=== PATIENT | female | born 1945 | race Caucasian/White ===

== ENCOUNTER 2024-11-07 21:05 | Inpatient (IN) | payer MEDICARE, SELFPAY ==
[2024-11-07 21:06] VITALS: BMI 30.7
[2024-11-07 21:07] VITALS: BP 177/80; PULSE 86; RESP 20; TEMP 36.6; O2SAT 97; BMI 30.7
--- NOTE | 2024-11-07 21:08 | XR_ITS ---
PROCEDURE INFORMATION: Exam: XR Left Hip Exam date and time: 11/07/2024 9:26 PM Age: 79 years old Clinical indication: Injury or trauma; Fall; Blunt trauma (contusions or hematomas); Left; Hip; Additional info: Hip pain after fall TECHNIQUE: Imaging protocol: Radiologic exam of the left hip. Views: 2 or 3 views hip with pelvis when performed. COMPARISON: CR XR HIP LT 2-3V W/PELVIS 11/07/2024 9:26 PM FINDINGS: Bones/joints: There is an intertrochanteric fracture of the proximal left femur. There is medial displacement of the distal fragment with some impaction present. The femoral head remains seated within the acetabulum. The bony pelvis is intact. A right total hip prosthesis is noted anatomic alignment. Soft tissues: Unremarkable. Other findings: There are multiple dense radiopacities projecting over the right mid abdomen of uncertain significance. These may be external to the patient. IMPRESSION: Left intertrochanteric fracture.
--- NOTE | 2024-11-07 21:08 | XR_ITS ---
PROCEDURE INFORMATION: Exam: XR Left Femur Exam date and time: 11/07/2024 9:26 PM Age: 79 years old Clinical indication: Injury or trauma; Fall; Blunt trauma; Hip; Left; Additional info: Pain after fall TECHNIQUE: Imaging protocol: Radiologic exam of the left femur. Views: 2 views. COMPARISON: CR XR HIP LT 2-3V W/PELVIS 11/07/2024 9:26 PM FINDINGS: Bones/joints: There is an intertrochanteric fracture. The distal femur is intact. There is severe degenerative changes of the knee. Soft tissues: Unremarkable. IMPRESSION: Intertrochanteric fracture.
--- NOTE | 2024-11-07 21:08 | HMH.EDGENADL ---
Discharge Plan Disposition Patient Disposition: Admitted Condition: Fair Clinical Impressions Clinical Impression: Femur fracture, left Discharge ED Provider: Rm Sheriff Adult HPI General Chief complaint: Fall Stated complaint: fall Time Seen by Provider: 11/07/24 21:07 History of Present Illness HPI narrative: Patient presents after nonsyncopal fall from standing onto her bottom which occurred shortly prior to arrival. She describes isolated pain in her left hip with no associated numbness tingling. Pain is worsened with movement. No head injury. No pain elsewhere. No blood thinner usage. She was in her normal state of health prior to onset of symptoms. Please note that above description of symptoms, in this electronic medical record under categorization of recalled from ER triage doctor by RN are reflective of an initial nursing assessment, however, is not reflective of my full history and physical exam that was personally taken and clarified. Consequentially, this preceding description of symptoms, which may include the patient's categorized chief complaint in the EMR, do not reflect my personal clinical impression, and the ultimate description of history of present illness and patient stated complaints should be deferred to this section of the note. Unless stated otherwise or congruent with this section of the note, additional signs, symptoms, or incongruence should be interpreted as inaccurate with my clinical impression. Related Data Home Medications ?Medication ?Instructions ?Recorded ?Confirmed amlodipine 5 mg tablet 5 mg PO DAILY 11/07/24 11/07/24 vit C 250 mg-vit E 200 unit-zinc 2 cap PO DAILY 11/07/24 11/07/24 ox 12.5 [id number]-[id number] capsule Previous Rx's ?Medication ?Instructions ?Recorded alendronate 70 mg tablet 70 mg PO WEEKLY 14 days #2 tabs 11/09/24 aspirin 325 mg tablet 325 mg PO DAILY 15 days #15 tabs 11/09/24 glipizide 10 mg tablet 10 mg PO DAILY 14 days #14 tabs 11/09/24 hydrocodone 5 mg-acetaminophen 325 1 tab PO Q6HP PRN Moderate To 11/09/24 mg tablet Severe Pain (4-10) 3 days #12 tabs levothyroxine 50 mcg tablet 50 mcg PO DAILY 15 days #15 tabs 11/09/24 pantoprazole 40 mg tablet,delayed 40 mg PO HS 15 days #15 tabs 11/09/24 release Allergies Allergy/AdvReac Type Severity Reaction Status Date / Time No Known Allergies Allergy Verified 11/08/24 01:08 [facility] Disclaimer: The information contained in this section may have been updated after the patient was seen, as this information can be updated by other users. Medical History (Updated 11/08/24 @ 10:41 by Haris Riddle DO) Macular degeneration of both eyes Foot fracture, left Ulnar nerve abnormality Osteopenia HTN (hypertension) Diabetes Hypothyroid Surgical History (Updated 11/08/24 @ 00:08 by Dee Londono RN) H/O: hysterectomy History of right hip hemiarthroplasty Social History (Updated 11/08/24 @ 09:01 by Lee Contreras CRNA) Smoking Status: Never smoker alcohol intake: never substance use type: denies use current occupational status: retired Travel in the last 8 weeks?: Inside the [place] ROS Obtained: Yes other As per HPI Physical Exam General General appearance: alert and in no apparent distress Head Head exam: atraumatic and normocephalic Eye Eye exam: Present normal appearance Neck Neck exam: Present normal inspection Chest Chest inspection: Present normal inspection and symmetric chest wall rise Respiratory Respiratory exam: Present normal lung sounds bilaterally; Absent respiratory distress Cardiovascular Cardiovascular exam: Present regular rate and normal rhythm Abdominal Exam Abdominal exam: Present soft Neurological Exam Neurological exam: Present alert and oriented X3 Psychiatric Psychiatric exam: Present normal affect and normal mood Skin Skin exam: Present warm and dry Medical Decision Making Medical Records Medical records reviewed: Yes I reviewed the patient's medical records. Screening: Per USPSTF and CDC recommendations, given the prevalence of disease in our region, it is our hospital?s policy to screen for HIV and viral Hepatitis for all patients aged 18 and over and those with ongoing risk factors. Poli Inquiry Pt receiving controlled substance: No Vital Signs: 11/07/24 21:07 11/07/24 21:21 11/07/24 22:37 Temperature 97.9 F Temperature Source Oral Pulse Rate 88 Pulse Rate [Left] 86 Respiratory Rate 20 16 Blood Pressure 149/66 H Blood Pressure [Right Arm] 177/80 H Blood Pressure Mean [Right Arm] 112 02 Sat by Pulse Oximetry 97 92 L Oxygen Delivery Method Nasal Cannula Room Air Oxygen Flow Rate (LPM) 2 11/07/24 22:51 Temperature 98.3 F Temperature Source Temporal Artery Scan Pulse Rate 82 Pulse Rate [Left] Respiratory Rate 20 Blood Pressure 147/65 H Blood Pressure [Right Arm] Blood Pressure Mean [Right Arm] 02 Sat by Pulse Oximetry Oxygen Delivery Method Nasal Cannula Oxygen Flow Rate (LPM) 2 Lab Data Lab Results 11/07/24 19:50: Hemoglobin A1c 6.2 H, TSH 0.97 11/07/24 21:13: WBC 9.0, RBC 4.56, Hgb 13.1, Hct 38.7, MCV 84.9, MCH 28.7, MCHC 33.9, RDW 13.8, Plt Count 198, MPV 9.3, Neut % (Auto) 60.4, Lymph % (Auto) 30.2, Pike % (Auto) 7.8, Eos % (Auto) 0.9, Baso % (Auto) 0.4, Neut # (Auto) 5.4, Lymph # (Auto) 2.7, Pike # (Auto) 0.7, Eos # (Auto) 0.1, Baso # (Auto) 0.0, PT 10.6, INR 0.94, Sodium 138, Potassium 3.5, Chloride 108 H, Carbon Dioxide 18 L, Anion Gap 15.5 H, BUN 13, Creatinine 0.70, Estimated Creat Clear 61, Estimated GFR 81, Est GFR ( Amer) 97, Glucose 172 H, Calcium 8.5, Total Bilirubin 0.7, AST 51 H, ALT 17, Alkaline Phosphatase 85, Total Protein 7.2, Albumin 3.7, Globulin 3.5 H, Albumin/Globulin Ratio 1.1, HCV Ab YUKO w/Rflx PCR Qn Negative, HIV Ag/Ab Combo Qual Negative 11/09/24 05:33 11/09/24 05:33 Orders (Tests/Meds): ED MEDICATIONS Discontinued Medications Generic Name Dose Route Start Last Admin Trade Name Freq PRN Reason Stop Dose Admin Hydrocodone Bitart/Acetaminophen 1 tab 11/07/24 23:50 11/08/24 09:16 Hydrocodone/Apap 5/325 Mg Tablet PO 12/07/24 23:49 1 tab Q6HP PRN Administration Moderate to Severe Pain (4-10) Hydrocodone Bitart/Acetaminophen 2 tab 11/08/24 13:47 11/09/24 14:15 Hydrocodone/Apap 5/325 Mg Tablet PO 12/08/24 13:46 2 tab Q4HP PRN Administration Moderate to Severe Pain (4-10) Amlodipine Besylate 5 mg 11/09/24 10:15 11/09/24 10:37 Amlodipine 5mg Tablet PO 12/09/24 10:14 5 mg DAILY MOON Administration Aspirin 81 mg 11/08/24 21:00 11/09/24 08:00 Aspirin 81mg Chewable Tablet PO 12/08/24 20:59 81 mg BID MOON Administration Furosemide 40 mg 11/09/24 09:34 11/09/24 10:03 Furosemide 40mg/4ml Vial IV 11/09/24 09:35 40 mg ONCE ONE Administration Hydromorphone HCl 1 mg 11/07/24 21:08 11/07/24 21:22 Hydromorphone 4 Mg/Ml Syringe IV 11/07/24 21:09 1 mg ONCE ONE Administration Hydromorphone HCl 0.5 mg 11/07/24 22:26 11/07/24 22:37 Hydromorphone 2mg/Ml Syringe IV 11/07/24 22:27 0.5 mg ONCE ONE Administration Lactated Ringer's 1,000 mls @ 75 mls/hr 11/07/24 23:45 11/08/24 00:31 Lactated Ringer's 1000 Ml Bag IV 11/08/24 09:44 Not Given .[id number] MOON Magnesium Sulfate 2 gm in 50 mls @ 50 mls/hr 11/08/24 09:00 11/08/24 14:00 Magnesium Sulfate 2gm/50ml Premix IV 11/08/24 10:59 50 mls/hr Q1H MOON Administration Cefazolin Sodium 1 gm/ Sodium 50 mls @ 100 mls/hr 11/08/24 17:00 11/08/24 22:25 Chloride IV 11/08/24 23:29 100 mls/hr Q6H MOON Administration Insulin Human Lispro 2 - 12 unit 11/08/24 06:00 11/09/24 10:59 Humalog 100 Units/Ml 10ml Vial (Ssi) SUBCUT 12/08/24 05:59 4 unit ACHS MOON Administration Protocol Ketorolac Tromethamine 30 mg 11/07/24 22:29 11/08/24 21:32 Ketorolac 30mg/Ml Vial IV 11/12/24 22:28 30 mg Q6HP PRN Administration Moderate Pain (4-6) Levothyroxine Sodium 50 mcg 11/08/24 09:00 11/09/24 06:08 Levothyroxine 50mcg (0.05mg) Tab PO 12/08/24 08:59 50 mcg DAILYDM MOON Administration Meperidine HCl 25 mg 11/08/24 13:34 Meperidine 25mg/Ml 1ml Syringe IV 11/08/24 15:34 Q5MINP PRN Shivering Morphine Sulfate 2 mg 11/08/24 13:34 Morphine 2mg/Ml Syringe IV 11/08/24 15:34 Q5MINP PRN Moderate Pain (4-6) Ondansetron HCl 4 mg 11/07/24 23:04 11/07/24 23:10 Ondansetron 4mg/2ml Vial IV 12/07/24 23:03 4 mg Q8HP PRN Administration Nausea Ondansetron HCl 4 mg 11/08/24 13:34 Ondansetron 4mg/2ml Vial IV 11/08/24 15:34 Q6HP PRN Nausea Pantoprazole Sodium 40 mg 11/09/24 21:00 Pantoprazole 40mg Tablet PO 12/09/24 20:59 HS MOON Potassium Chloride 40 meq 11/08/24 09:00 11/08/24 14:01 Potassium Chloride 20meq Tab PO 11/08/24 13:01 40 meq Q4H MOON Administration Promethazine HCl 6.25 mg 11/08/24 13:34 Promethazine Hcl 25mg/Ml 1ml Vial IV 11/08/24 15:34 [id number] PRN Nausea And Vomiting Sodium Chloride 10 ml 11/07/24 23:53 Sodium Chloride 0.9% 10ml Flush Syringe IV 12/07/24 23:52 NEEDED PRN Maintain IV Site Sodium Chloride 25 ml 11/08/24 13:34 Sodium Chloride 0.9% 25ml Bag IV 11/08/24 15:34 NEEDED PRN for Use with IV Promethazine Tizanidine HCl 4 mg 11/07/24 23:51 11/08/24 00:15 Tizanidine 4mg Tablet PO 12/08/24 08:59 4 mg TID PRN Administration Muscle Spasm Tizanidine HCl 4 mg 11/08/24 06:05 Tizanidine 4mg Tablet PO 12/07/24 23:50 TIDP PRN Muscle Spasm ORDERS Category Date Time Status Ortho Consult [Consult to Orthopedic Surgery] [CONS] Cons 11/07/24 22:31 Ordered Stat Elbow XR right 2 views [XR elbow RT 2V] Stat Exams 11/07/24 22:15 Completed XR femur LT 2V Stat Exams 11/07/24 21:08 Completed XR hip LT 2-3V w/pelvis Stat Exams 11/07/24 21:08 Completed XR hip RT 2-3V w/pelvis Stat Exams 11/07/24 22:20 Completed XR humerus RT Stat Exams 11/07/24 22:15 Completed XR shoulder RT min 2V Stat Exams 11/07/24 22:15 Completed CBC w/Auto Diff [Complete Blood Count Auto Diff] Stat Lab 11/07/24 21:13 Completed CMP [Comprehensive Metabolic Panel] Stat Lab 11/07/24 21:13 Completed Complete Blood Count Auto Diff AMLAB Lab 11/08/24 05:33 Completed Comprehensive Metabolic Panel AMLAB Lab 11/08/24 05:33 Completed HIV Combo Stat Lab 11/07/24 21:13 Completed Hemoglobin A1C Stat Lab 11/07/24 19:50 Completed Hepatitis C Ab Qual. W/ RFX Stat Lab 11/07/24 21:13 Completed Magnesium AMLAB Lab 11/08/24 05:33 Completed PT INR [Prothrombin Time INR] Stat Lab 11/07/24 21:13 Completed TSH [Thyroid Stimulating Hormone] Stat Lab 11/07/24 19:50 Completed Medical Decision Narrative: Patient with history and exam per above presenting for evaluation of left hip pain after fall Diagnoses considered include fracture, no clinical evidence to suggest intracranial injury, vascular injury, nerve injury ED workup and treatment included: ED MEDICATIONS Discontinued Medications Generic Name Dose Route Start Last Admin Trade Name Freq PRN Reason Stop Dose Admin Hydrocodone Bitart/Acetaminophen 1 tab 11/07/24 23:50 11/08/24 09:16 Hydrocodone/Apap 5/325 Mg Tablet PO 12/07/24 23:49 1 tab Q6HP PRN Administration Moderate to Severe Pain (4-10) Hydrocodone Bitart/Acetaminophen 2 tab 11/08/24 13:47 11/09/24 14:15 Hydrocodone/Apap 5/325 Mg Tablet PO 12/08/24 13:46 2 tab Q4HP PRN Administration Moderate to Severe Pain (4-10) Amlodipine Besylate 5 mg 11/09/24 10:15 11/09/24 10:37 Amlodipine 5mg Tablet PO 12/09/24 10:14 5 mg DAILY MOON Administration Aspirin 81 mg 11/08/24 21:00 11/09/24 08:00 Aspirin 81mg Chewable Tablet PO 12/08/24 20:59 81 mg BID MOON Administration Furosemide 40 mg 11/09/24 09:34 11/09/24 10:03 Furosemide 40mg/4ml Vial IV 11/09/24 09:35 40 mg ONCE ONE Administration Hydromorphone HCl 1 mg 11/07/24 21:08 11/07/24 21:22 Hydromorphone 4 Mg/Ml Syringe IV 11/07/24 21:09 1 mg ONCE ONE Administration Hydromorphone HCl 0.5 mg 11/07/24 22:26 11/07/24 22:37 Hydromorphone 2mg/Ml Syringe IV 11/07/24 22:27 0.5 mg ONCE ONE Administration Lactated Ringer's 1,000 mls @ 75 mls/hr 11/07/24 23:45 11/08/24 00:31 Lactated Ringer's 1000 Ml Bag IV 11/08/24 09:44 Not Given .[id number] MOON Magnesium Sulfate 2 gm in 50 mls @ 50 mls/hr 11/08/24 09:00 11/08/24 14:00 Magnesium Sulfate 2gm/50ml Premix IV 11/08/24 10:59 50 mls/hr Q1H MOON Administration Cefazolin Sodium 1 gm/ Sodium 50 mls @ 100 mls/hr 11/08/24 17:00 11/08/24 22:25 Chloride IV 11/08/24 23:29 100 mls/hr Q6H MOON Administration Insulin Human Lispro 2 - 12 unit 11/08/24 06:00 11/09/24 10:59 Humalog 100 Units/Ml 10ml Vial (Ssi) SUBCUT 12/08/24 05:59 4 unit ACHS MOON Administration Protocol Ketorolac Tromethamine 30 mg 11/07/24 22:29 11/08/24 21:32 Ketorolac 30mg/Ml Vial IV 11/12/24 22:28 30 mg Q6HP PRN Administration Moderate Pain (4-6) Levothyroxine Sodium 50 mcg 11/08/24 09:00 11/09/24 06:08 Levothyroxine 50mcg (0.05mg) Tab PO 12/08/24 08:59 50 mcg DAILYDM MOON Administration Meperidine HCl 25 mg 11/08/24 13:34 Meperidine 25mg/Ml 1ml Syringe IV 11/08/24 15:34 Q5MINP PRN Shivering Morphine Sulfate 2 mg 11/08/24 13:34 Morphine 2mg/Ml Syringe IV 11/08/24 15:34 Q5MINP PRN Moderate Pain (4-6) Ondansetron HCl 4 mg 11/07/24 23:04 11/07/24 23:10 Ondansetron 4mg/2ml Vial IV 12/07/24 23:03 4 mg Q8HP PRN Administration Nausea Ondansetron HCl 4 mg 11/08/24 13:34 Ondansetron 4mg/2ml Vial IV 11/08/24 15:34 Q6HP PRN Nausea Pantoprazole Sodium 40 mg 11/09/24 21:00 Pantoprazole 40mg Tablet PO 12/09/24 20:59 HS MOON Potassium Chloride 40 meq 11/08/24 09:00 11/08/24 14:01 Potassium Chloride 20meq Tab PO 11/08/24 13:01 40 meq Q4H MOON Administration Promethazine HCl 6.25 mg 11/08/24 13:34 Promethazine Hcl 25mg/Ml 1ml Vial IV 11/08/24 15:34 [id number] PRN Nausea And Vomiting Sodium Chloride 10 ml 11/07/24 23:53 Sodium Chloride 0.9% 10ml Flush Syringe IV 12/07/24 23:52 NEEDED PRN Maintain IV Site Sodium Chloride 25 ml 11/08/24 13:34 Sodium Chloride 0.9% 25ml Bag IV 11/08/24 15:34 NEEDED PRN for Use with IV Promethazine Tizanidine HCl 4 mg 11/07/24 23:51 11/08/24 00:15 Tizanidine 4mg Tablet PO 12/08/24 08:59 4 mg TID PRN Administration Muscle Spasm Tizanidine HCl 4 mg 11/08/24 06:05 Tizanidine 4mg Tablet PO 12/07/24 23:50 TIDP PRN Muscle Spasm ORDERS Category Date Time Status Ortho Consult [Consult to Orthopedic Surgery] [CONS] Cons 11/07/24 22:31 Ordered Stat Elbow XR right 2 views [XR elbow RT 2V] Stat Exams 11/07/24 22:15 Completed XR femur LT 2V Stat Exams 11/07/24 21:08 Completed XR hip LT 2-3V w/pelvis Stat Exams 11/07/24 21:08 Completed XR hip RT 2-3V w/pelvis Stat Exams 11/07/24 22:20 Completed XR humerus RT Stat Exams 11/07/24 22:15 Completed XR shoulder RT min 2V Stat Exams 11/07/24 22:15 Completed CBC w/Auto Diff [Complete Blood Count Auto Diff] Stat Lab 11/07/24 21:13 Completed CMP [Comprehensive Metabolic Panel] Stat Lab 11/07/24 21:13 Completed Complete Blood Count Auto Diff AMLAB Lab 11/08/24 05:33 Completed Comprehensive Metabolic Panel AMLAB Lab 11/08/24 05:33 Completed HIV Combo Stat Lab 11/07/24 21:13 Completed Hemoglobin A1C Stat Lab 11/07/24 19:50 Completed Hepatitis C Ab Qual. W/ RFX Stat Lab 11/07/24 21:13 Completed Magnesium AMLAB Lab 11/08/24 05:33 Completed PT INR [Prothrombin Time INR] Stat Lab 11/07/24 21:13 Completed TSH [Thyroid Stimulating Hormone] Stat Lab 11/07/24 19:50 Completed Labs were independently interpreted by me, significant for no acute findings Imaging was independently visualized and interpreted by me, significant for left intertrochanteric fracture. Please refer to radiology report for full details. Patient will be admitted to hospital medicine service after orthopedic surgery consultation for further management. Critical Care Critical Care Time Critical Care Time: No
[2024-11-07 21:20] LABS: Basophils % 0.4 % (0.1-2.0); Eosinophils # 0.1 Kmm3 (0.0-0.4); Eosinophils % 0.9 % (0.1-12.0); Hematocrit 38.7 % (37.0-47.0); Hemoglobin 13.1 g/dL (12.2-16.2); Lymphocytes # 2.7 K/mm3 (0.7-4.5); Lymphocytes % 30.2 % (10-50); Mean Corpuscular HGB Conc 33.9 g/dL (31.8-35.4); Mean Corpuscular Hemoglobin 28.7 pg (27.0-31.2); Mean Corpuscular Volume 84.9 fl (81-99); Mean Platelet Volume 9.3 fl (7.4-10.4); Monocytes # 0.7 K/mm3 (0.1-1.0); Monocytes % 7.8 % (1.7-9.3); Neutrophils # 5.4 K/mm3 (1.8-7.8); Neutrophils % 60.4 % (37.0-80.0); Nucleated Red Blood Cells # 0 10^3/uL; Nucleated Red Blood Cells % 0 %; Platelet Count 198 K/mm3 (142-424); Red Blood Count 4.56 M/mm3 (4.20-5.40); Red Cell Distribution Width 13.8 % (11.5-17.5); Red Cell Distribution Width-SD 42.5 fL
[2024-11-07 21:21] VITALS: BP 149/66; PULSE 88; RESP 16; O2SAT 92
[2024-11-07 21:29] LABS: INR 0.94 (0.9-1.1); Prothrombin Time 10.6 seconds (10.1-12.5)
[2024-11-07 21:33] LABS: Albumin Level 3.7 g/dl (3.5-5.0); Chloride 108 mmol/L (98-107); Potassium 3.5 mmoL/L (3.5-5.1); Sodium 138 mmol/L (136-145)
[2024-11-07 21:35] LABS: Blood Urea Nitrogen 13 mg/dl (7-17); Creatinine Clearance Estimated 61 mL/min (50-200); Estimated Glomerular Filt Rate 81 ml/min (>60); GFR (African American) 97 ML/MIN (>60)
[2024-11-07 21:36] LABS: Alanine Aminotransferase 17 U/L (12-78); Albumin/Globulin Ratio 1.1 (1.1-1.8); Alkaline Phosphatase 85 U/L (38-126); Anion Gap 15.5 mEq/L (5-15); Aspartate Amino Transferase 51 U/L (14-36); Bilirubin,Total 0.7 mg/dl (0.2-1.3); Calcium 8.5 mg/dl (8.4-10.2); Carbon Dioxide 18 mmol/L (22.0-30.0); Globulin 3.5 g/dL (1.3-3.2); Glucose 172 mg/dl (74-100); Total Protein,Serum 7.2 g/dl (6.3-8.2)
--- NOTE | 2024-11-07 22:15 | XR_ITS ---
PROCEDURE INFORMATION: Exam: XR Right Humerus Exam date and time: 11/07/2024 10:34 PM Age: 79 years old Clinical indication: Injury or trauma; Fall; Blunt trauma (contusions or hematomas); Arm, upper; Right; Additional info: Pain after fall TECHNIQUE: Imaging protocol: Radiologic exam of the right humerus. Views: 2 or more views. COMPARISON: CR XR HUMERUS RT 11/07/2024 10:34 PM FINDINGS: Bones/joints: The humerus is intact. The shoulder and elbow are normally aligned. Soft tissues: Normal. IMPRESSION: No acute findings.
--- NOTE | 2024-11-07 22:15 | XR_ITS ---
PROCEDURE INFORMATION: Exam: XR Right Elbow Exam date and time: 11/07/2024 10:34 PM Age: 79 years old Clinical indication: Injury or trauma; Fall; Blunt trauma (contusions or hematomas); Elbow; Right; Additional info: Pain after fall TECHNIQUE: Imaging protocol: Radiologic exam of the right elbow. Views: 1 or 2 views. COMPARISON: CR XR HUMERUS RT 11/07/2024 10:34 PM FINDINGS: Bones/joints: The elbow is normally aligned. There are degenerative changes present. No acute fracture or joint effusion. Prominent enthesophyte at the triceps insertion. Soft tissues: Posterior soft tissue swelling. IMPRESSION: Posterior soft tissue swelling. No acute fracture.
--- NOTE | 2024-11-07 22:15 | XR_ITS ---
PROCEDURE INFORMATION: Exam: XR Right Shoulder Exam date and time: 11/07/2024 10:34 PM Age: 79 years old Clinical indication: Injury or trauma; Fall; Blunt trauma (contusions or hematomas); Arm, upper; Right; Additional info: Pain after fall TECHNIQUE: Imaging protocol: Radiologic exam of the right shoulder. Views: 2 or more views. COMPARISON: CR XR SHOULDER RT MIN 2V 11/07/2024 10:34 PM FINDINGS: Bones/joints: The glenohumeral AC joints are normally aligned. There is moderate degenerative change of the glenohumeral joint. No acute fracture is evident. Soft tissues: Normal. IMPRESSION: No acute findings.
[2024-11-07 22:19] LABS: HIV Combo NEGATIVE (Negative)
--- NOTE | 2024-11-07 22:20 | XR_ITS ---
PROCEDURE INFORMATION: Exam: XR Right Hip Exam date and time: 11/07/2024 10:34 PM Age: 79 years old Clinical indication: Injury or trauma; Fall; Blunt trauma (contusions or hematomas); Bilateral; Hip; Additional info: Pain after fall TECHNIQUE: Imaging protocol: Radiologic exam of the right hip. Views: 2 or 3 views hip with pelvis when performed. COMPARISON: No relevant prior studies available. FINDINGS: Bones/joints: A right total hip prosthesis is noted anatomic alignment. The bone prosthetic interface is normal. No acute fracture is evident. Soft tissues: Unremarkable. IMPRESSION: Intact right hip prosthesis. No acute fracture.
[2024-11-07 22:27] LABS: Hepatitis C Ab Qual. W/ RFX NEGATIVE (Negative)
--- NOTE | 2024-11-07 22:33 | EXP.HP ---
History of Present Illness *Admission Date: 11/07/24 *Reason for visit:: fall with left hip pain *History of present illness: Ms. Fatima is an 79-year-old female with history of hypertension, diabetes, hypothyroid. She is visiting [place] from [place]. Went to the parking counter earlier today. On her way back into her air BNB this evening she fell going up the stairs. She fell back on her bottom. When she tried to get up, she had acute onset of left hip pain. Denies loss of consciousness. Did not hit her head. Also hit her right elbow. Workup in the ER showed essentially normal labs. Imaging of right arm with no fracture. Left hip has intertrochanteric fracture. Medicine consulted for admission and further management. Plan for orthopedics to evaluate in the morning Patient on 1 L oxygen for comfort on arrival to the floor. Denies chest pain or shortness of breath. Denies nausea or vomiting. Alert and oriented x 4. Family at bedside. Patient previously had right hip replaced several years ago. Denies any significant allergies. [facility] Disclaimer: The information contained in this section may have been updated after the patient was seen, as this information can be updated by other users. Medical History (Updated 11/08/24 @ 00:08 by Dee Londono RN) Macular degeneration of both eyes Foot fracture, left Ulnar nerve abnormality Osteopenia HTN (hypertension) Diabetes Hypothyroid Surgical History (Updated 11/08/24 @ 00:08 by Dee Londono RN) H/O: hysterectomy History of right hip hemiarthroplasty Social History Smoking Status: Never smoker alcohol intake: never current occupational status: retired Travel in the last 8 weeks: Inside the [place] Review of Systems Review of Systems Review of systems (narrative): 14 point review of systems performed, pertinent positives and negatives as per HPI Meds Home Medications and Allergies Home Medications ?Medication ?Instructions ?Recorded ?Confirmed ?Type alendronate 70 mg tablet 70 mg PO WEEKLY 11/07/24 11/07/24 History amlodipine 5 mg tablet 5 mg PO DAILY 11/07/24 11/07/24 History aspirin 325 mg tablet 325 mg PO DAILY 11/07/24 11/07/24 History glipizide 10 mg tablet 10 mg PO DAILY 11/07/24 11/07/24 History hydrocodone 5 mg-acetaminophen 325 1 tab PO Q6H 11/07/24 11/07/24 History mg tablet levothyroxine 50 mcg tablet 50 mcg PO DAILY 11/07/24 11/07/24 History vit C 250 mg-vit E 200 unit-zinc 2 cap PO DAILY 11/07/24 11/07/24 History ox 12.5 ol-tarpwx-deixzs-zeax capsule New Prescriptions to Start Prescriptions: Exam Data for Last 24 hours Vital signs and Labs for Last 24 Hours: Temp Pulse Resp BP Pulse Ox O2 Del Method O2 Flow Rate 97.9 F 88 16 149/66 H 92 L Nasal Cannula 2 11/07/24 21:07 11/07/24 21:21 11/07/24 21:21 11/07/24 21:21 11/07/24 21:21 11/07/24 21:07 11/07/24 21:07 Laboratory Results - last 24 hr 11/07/24 21:13: WBC 9.0, RBC 4.56, Hgb 13.1, Hct 38.7, MCV 84.9, MCH 28.7, MCHC 33.9, RDW 13.8, Plt Count 198, MPV 9.3, Neut % (Auto) 60.4, Lymph % (Auto) 30.2, [place] % (Auto) 7.8, Eos % (Auto) 0.9, Baso % (Auto) 0.4, Neut # (Auto) 5.4, Lymph # (Auto) 2.7, [place] # (Auto) 0.7, Eos # (Auto) 0.1, Baso # (Auto) 0.0, PT 10.6, INR 0.94, Sodium 138, Potassium 3.5, Chloride 108 H, Carbon Dioxide 18 L, Anion Gap 15.5 H, BUN 13, Creatinine 0.70, Estimated Creat Clear 61, Estimated GFR 81, Est GFR ( Amer) 97, Glucose 172 H, Calcium 8.5, Total Bilirubin 0.7, AST 51 H, ALT 17, Alkaline Phosphatase 85, Total Protein 7.2, Albumin 3.7, Globulin 3.5 H, Albumin/Globulin Ratio 1.1, HCV Ab YUKO w/Rflx PCR Qn Negative, HIV Ag/Ab Combo Qual Negative I & O for Last 24 hours: Intake & Output 11/04/24 11/05/24 11/06/24 11/07/24 23:59 23:59 23:59 23:59 Weight 86.183 kg Constitutional Constitutional: no acute distress, obese and cooperative *Routine HEENT Exam Head: Present normocephalic Eye: Present EOMI and PERRL ENT: Present mucous membranes moist *Routine Neck Exam Neck: Present supple; Absent lymphadenopathy *Routine Respiratory Exam Respiratory: Present CTA bilaterally *Routine Cardiovascular Exam Cardiovascular: Present RRR *Routine Abdominal Exam Abdominal: Present soft and normoactive bowel sounds; Absent tenderness *Routine Rectal Exam Rectal:: deferred *Routine Genitalia Exam Genitalia:: deferred *Routine Extremities Exam Extremities: Absent cyanosis, clubbing or edema Comments: Left leg externally rotated and shorter than right leg, tender to palpation over left hip *Routine Skin Exam Skin: Present intact and warm; Absent rash *Routine Neurological Exam Neurological: Present alert, oriented X3 and moving all extremities; Absent altered mental status Assessment and Plan *Assessment and plan (1) Left hip pain: Status: Acute Category: Medical Code(s): M25.552 - Pain in left hip (2) Fracture, intertrochanteric, left femur: Status: Acute Qualifiers: Encounter type: initial encounter Fracture alignment: displaced Fracture type: closed Qualified Code(s): S72.142A - Displaced intertrochanteric fracture of left femur, initial encounter for closed fracture Category: Medical Code(s): S72.142A - Displaced intertrochanteric fracture of left femur, initial encounter for closed fracture (3) Hypothyroid: Status: Chronic Qualifiers: Hypothyroidism type: acquired Qualified Code(s): E03.9 - Hypothyroidism, unspecified Category: Medical Code(s): E03.9 - Hypothyroidism, unspecified (4) Diabetes: Status: Chronic Qualifiers: Diabetes mellitus complication status: without complication 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 insulin use: without alf use Diabetes mellitus type: type 2 Qualified Code(s): E11.9 - Type 2 diabetes mellitus without complications Category: Medical Code(s): E11.9 - Type 2 diabetes mellitus without complications (5) HTN (hypertension): Status: Chronic Qualifiers: Hypertension type: primary hypertension Qualified Code(s): I10 - Essential (primary) hypertension Category: Medical Code(s): I10 - Essential (primary) hypertension (6) Osteopenia: Status: Chronic Category: Medical Code(s): M85.80 - Other specified disorders of bone density and structure, unspecified site Plan 79-year-old female who fell walking into her air B&B. Broke her left hip. Discussed case with ER physician, request admission for evaluation by Ortho in the morning and surgery tomorrow. I agreed to admit for further care. Having intermittent spasm pain in left hip. Hemodynamically stable. Orthopedics to evaluate in the morning. Problems addressed as follows: Left intertrochanteric fracture - Per my review of x-ray of left hip has medially displaced left intertrochanteric fracture. - Having some muscle spasm, initiate tizanidine 4 mg 3 times a day as needed - Continue hydrocodone 5 mg/325 every 6 hours as needed - Initiate Toradol 30 mg IV as needed every 6 hours - Orthopedics consulted to evaluate patient in the morning. Anticipate surgery tomorrow. N.p.o. at midnight. Gentle hydration overnight with 75 cc LR per hour -PT to evaluate after surgery to discuss placement versus outpatient rehab. Patient is here from [place], has family staying with her. Will have case management assist with coordination of dispo planning pending. Diabetes: A1c 6.2. Initiate sliding scale insulin and fingersticks ACHS. Holding glipizide Hypothyroid: TSH controlled at 0.97. Continue levothyroxine 50 mcg daily Holding aspirin. Increases risk for bleeding at this time. Will discuss anticoagulation after surgery. Anticoagulation normal, INR 0.9. CBC, CMP, magnesium ordered for the morning. Kidney function normal with BUN 13, creatinine 0.7 Full code N.p.o. at midnight Holding anticoagulation for anticipated surgery in the morning
[2024-11-07] MEDS: HYDROMORPHONE 2MG/ML SYRINGE 0.5 MG IV (22:37)
[2024-11-07 22:51] VITALS: BP 147/65; PULSE 82; RESP 20; TEMP 36.8; O2SAT 97
[2024-11-07 22:54] LABS: Hemoglobin A1C 6.2 % (4.0-6.0)
--- NOTE | 2024-11-07 22:58 | PC.NURSE ---
Patient arrived to floor via stretcher from ED at 22:56.
[2024-11-07] MEDS: KETOROLAC 30MG/ML VIAL 30 MG IV (23:09)
[2024-11-07] MEDS: ONDANSETRON 4MG/2ML VIAL 4 MG IV (23:10)
[2024-11-07 23:14] LABS: Thyroid Stimulating Hormone 0.97 uIU/mL (0.465-4.68)
[2024-11-08] VITALS (16 sets, daily range): BP systolic 95–156; BP diastolic 41–82; PULSE 60–89; RESP 12–22; TEMP 36.5–37.7; O2SAT 90–98; BMI 29.6; BMI 29.7
[2024-11-08] MEDS: TIZANIDINE 4MG TABLET 4 MG PO (00:15)
[2024-11-08] MEDS: HYDROCODONE/APAP 5/325 MG TABLET 1 TAB PO ×2 (02:05→09:16)
[2024-11-08] MEDS: KETOROLAC 30MG/ML VIAL 30 MG IV ×2 (04:54→21:32)
--- NOTE | 2024-11-08 05:46 | PC.NURSE ---
Pt A&OX4 and has tolerated room air. Lung sounds clear and bowel sounds active. Pt has been medicated for pain to left hip. She did complain of nausea once and was medicated per MAR. She has remained NPO since midnight for procedure today. No complaints at this time, call light within reach.
[2024-11-08] MEDS: humaLOG 100 UNITS/ML 10ML VIAL (SSI) SUBCUT ×2 (05:56→21:31)
[2024-11-08 06:18] LABS: POC Glucose,Bedside 202 (70-110)
[2024-11-08 06:20] LABS: Basophils % 0.5 % (0.1-2.0); Eosinophils % 0.2 % (0.1-12.0); Hematocrit 29.6 % (37.0-47.0); Lymphocytes # 1.5 K/mm3 (0.7-4.5); Lymphocytes % 23.8 % (10-50); Mean Corpuscular HGB Conc 33.8 g/dL (31.8-35.4); Mean Corpuscular Hemoglobin 28.6 pg (27.0-31.2); Mean Corpuscular Volume 84.6 fl (81-99); Mean Platelet Volume 9.7 fl (7.4-10.4); Monocytes # 0.6 K/mm3 (0.1-1.0); Monocytes % 9.7 % (1.7-9.3); Neutrophils % 65.6 % (37.0-80.0); Nucleated Red Blood Cells # 0 10^3/uL; Nucleated Red Blood Cells % 0 %; Platelet Count 161 K/mm3 (142-424); Red Cell Distribution Width 13.7 % (11.5-17.5); Red Cell Distribution Width-SD 42.1 fL; White Blood Count 6.1 K/mm3 (4.8-10.8)
[2024-11-08 06:26] LABS: Albumin Level 2.8 g/dl (3.5-5.0); Chloride 107 mmol/L (98-107); Potassium 3.5 mmoL/L (3.5-5.1); Sodium 138 mmol/L (136-145)
[2024-11-08 06:29] LABS: Alanine Aminotransferase 16 U/L (12-78); Alkaline Phosphatase 61 U/L (38-126); Anion Gap 6.5 mEq/L (5-15); Aspartate Amino Transferase 25 U/L (14-36); Bilirubin,Total 0.3 mg/dl (0.2-1.3); Blood Urea Nitrogen 13 mg/dl (7-17); Carbon Dioxide 28 mmol/L (22.0-30.0); Creatinine Clearance Estimated 59 mL/min (50-200); Estimated Glomerular Filt Rate 81 ml/min (>60); GFR (African American) 97 ML/MIN (>60); Globulin 2.8 g/dL (1.3-3.2); Glucose 165 mg/dl (74-100); Total Protein,Serum 5.6 g/dl (6.3-8.2)
[2024-11-08 06:30] LABS: Magnesium 1.7 mg/dl (1.6-2.3)
[2024-11-08 07:01] LABS: Hemoglobin 10.2 g/dL (12.2-16.2)
--- NOTE | 2024-11-08 09:00 | P.PNANES_ITS ---
[facility] Disclaimer: The information contained in this section may have been updated after the patient was seen, as this information can be updated by other users. Medical History (Updated 11/08/24 @ 00:08 by Dee Londono RN) Macular degeneration of both eyes Foot fracture, left Ulnar nerve abnormality Osteopenia HTN (hypertension) Diabetes Hypothyroid Surgical History (Updated 11/08/24 @ 00:08 by Dee Londono RN) H/O: hysterectomy History of right hip hemiarthroplasty Social History (Updated 11/08/24 @ 00:18 by Rajesh Major MD) Smoking Status: Never smoker alcohol intake: never substance use type: denies use current occupational status: retired Travel in the last 8 weeks: Inside the [facility] Anesthesia Checklist Patient Identification Patient Identification: Arm Band and Verbal (Name & ) Structural Data Admitted From: Home Planned Operative Procedure/s: Left TFN nail Consent for Planned Operative Procedure(s) Verified: Yes Verified Documents: Surgical Consent NPO Status Verified Time NPO: 00:00 Chart Verification Results Verified: CBC and BMP Additional verifications Patient : No Anesthesia Reactions: No Hx Blood Transfusions: No Blood Transfusion Reaction: No Cephalosporin Allergy: No Previous Colonoscopy: No Airway Assessment Mallampati Score:: Class II C-Spine Mobility Assessed: Yes TMJ Mobility Assessed: No Dentition: Partials Neurological Assessment Level of Consciousness: Awake, Alert and Appropriate Hx Seizures: No Numbness or tingling in extremities: No Anesthesia Plan Anesthesia Risk discussed: Yes Anesthesia Plan: Verified ASA Class: II Anesthesia Type: MAC w/Spinal
[2024-11-08] MEDS: LEVOTHYROXINE 50MCG (0.05MG) TAB 50 MCG PO (09:17)
[2024-11-08] MEDS: MAGNESIUM SULFATE IN WATER 2 GM/50 ML PIGGYBACK IV ×2 (09:17→14:00)
[2024-11-08] MEDS: POTASSIUM CHLORIDE 20MEQ TAB 40 MEQ PO ×2 (09:18→14:01)
--- NOTE | 2024-11-08 10:37 | EXP.ORTH.CON ---
History of Present Illness *Admission Date: 11/07/24 *History of present illness: Ms. Fatima is an 79-year-old female with history of hypertension, diabetes, hypothyroid. She is visiting [place] from [place]. Went to the parking counter earlier today. On her way back into her air BNB this evening she fell going up the stairs. She fell back on her bottom. When she tried to get up, she had acute onset of left hip pain. Denies loss of consciousness. Did not hit her head. Also hit her right elbow. Workup in the ER showed essentially normal labs. Imaging of right arm with no fracture. Left hip has intertrochanteric fracture. Medicine consulted for admission and further management. Plan for orthopedics to evaluate in the morning Patient on 1 L oxygen for comfort on arrival to the floor. Denies chest pain or shortness of breath. Denies nausea or vomiting. Alert and oriented x 4. Family at bedside. Patient previously had right hip replaced several years ago. Denies any significant allergies. [facility] Disclaimer: The information contained in this section may have been updated after the patient was seen, as this information can be updated by other users. Medical History (Updated 11/08/24 @ 10:41 by Haris Riddle DO) Macular degeneration of both eyes Foot fracture, left Ulnar nerve abnormality Osteopenia HTN (hypertension) Diabetes Hypothyroid Surgical History (Updated 11/08/24 @ 00:08 by Dee Londono RN) H/O: hysterectomy History of right hip hemiarthroplasty Social History (Updated 11/08/24 @ 09:01 by Lee Contreras CRNA) Smoking Status: Never smoker alcohol intake: never substance use type: denies use current occupational status: retired Travel in the last 8 weeks: [place] Have you lived/traveled outside US in past 30 days?: No Contact w/someone who lives/traveled outside US past 30 days?: No Exposure to someone with infectious disease in past 14 days?: No Do you have a fever (greater than 100.4 F or 38 C)?: No Have you tested positive for COVID-19: No Exposed to someone with COVID-19 in past 14 days?: No Do you have a sore throat?: No Do you have a cough?: No Do you have any weakness?: No Are you experiencing any nausea/vomitting?: No Do you have any diarrhea?: No Are you experiencing any unusual bleeding?: No Do you have any muscle aches/pain?: No Do you have any abdominal pain?: No Are you experiencing loss of taste or smell?: No Meds Home Medications and Allergies Home Medications ?Medication ?Instructions ?Recorded ?Confirmed ?Type alendronate 70 mg tablet 70 mg PO WEEKLY 11/07/24 11/07/24 History amlodipine 5 mg tablet 5 mg PO DAILY 11/07/24 11/07/24 History aspirin 325 mg tablet 325 mg PO DAILY 11/07/24 11/07/24 History glipizide 10 mg tablet 10 mg PO DAILY 11/07/24 11/07/24 History levothyroxine 50 mcg tablet 50 mcg PO DAILY 11/07/24 11/07/24 History vit C 250 mg-vit E 200 unit-zinc 2 cap PO DAILY 11/07/24 11/07/24 History ox 12.5 oa-usisju-dxcuel-zeax capsule New Prescriptions to Start Prescriptions: Allergies Allergy/AdvReac Type Severity Reaction Status Date / Time No Known Allergies Allergy Verified 11/08/24 01:08 Ortho Exam (Inpt) Vital signs and Labs for Last 24 Hours: Temp Pulse Resp BP Pulse Ox O2 Del Method O2 Flow Rate 98.1 F 60 12 95/41 L 94 L Room Air 2 11/08/24 07:40 11/08/24 07:40 11/08/24 07:40 11/08/24 07:40 11/08/24 07:40 11/08/24 08:00 11/08/24 00:00 Laboratory Results - last 24 hr 11/07/24 19:50: Hemoglobin A1c 6.2 H, TSH 0.97 11/07/24 21:13: WBC 9.0, RBC 4.56, Hgb 13.1, Hct 38.7, MCV 84.9, MCH 28.7, MCHC 33.9, RDW 13.8, Plt Count 198, MPV 9.3, Neut % (Auto) 60.4, Lymph % (Auto) 30.2, [place] % (Auto) 7.8, Eos % (Auto) 0.9, Baso % (Auto) 0.4, Neut # (Auto) 5.4, Lymph # (Auto) 2.7, [place] # (Auto) 0.7, Eos # (Auto) 0.1, Baso # (Auto) 0.0, PT 10.6, INR 0.94, Sodium 138, Potassium 3.5, Chloride 108 H, Carbon Dioxide 18 L, Anion Gap 15.5 H, BUN 13, Creatinine 0.70, Estimated Creat Clear 61, Estimated GFR 81, Est GFR ( Amer) 97, Glucose 172 H, Calcium 8.5, Total Bilirubin 0.7, AST 51 H, ALT 17, Alkaline Phosphatase 85, Total Protein 7.2, Albumin 3.7, Globulin 3.5 H, Albumin/Globulin Ratio 1.1, HCV Ab YUKO w/Rflx PCR Qn Negative, HIV Ag/Ab Combo Qual Negative 11/08/24 05:33: WBC 6.1 D, RBC 3.50 L, Hgb 10.2 L D, Hct 29.6 L, MCV 84.6, MCH 28.6, MCHC 33.8, RDW 13.7, Plt Count 161, MPV 9.7, Neut % (Auto) 65.6, Lymph % (Auto) 23.8, [place] % (Auto) 9.7 H, Eos % (Auto) 0.2, Baso % (Auto) 0.5, Neut # (Auto) 4.0, Lymph # (Auto) 1.5, [place] # (Auto) 0.6, Eos # (Auto) 0.0, Baso # (Auto) 0.0, Sodium 138, Potassium 3.5, Chloride 107, Carbon Dioxide 28, Anion Gap 6.5, BUN 13, Creatinine 0.70, Estimated Creat Clear 59, Estimated GFR 81, Est GFR ( Amer) 97, Glucose 165 H, Calcium 8.0 L, Magnesium 1.7, Total Bilirubin 0.3, AST 25 D, ALT 16, Alkaline Phosphatase 61, Total Protein 5.6 L, Albumin 2.8 L D, Globulin 2.8, Albumin/Globulin Ratio 1.0 L 11/08/24 05:55: POC Glucose 202 H I & O for Labs for Last 24 Hours: Intake & Output 11/05/24 11/06/24 11/07/24 11/08/24 23:59 23:59 23:59 23:59 Intake Total 100 / 100 Output Total 100 / 100 Balance 0 / 0 Weight 190 lb 185 lb Head: Present normocephalic and atraumatic Additional findings:: Left hip left lower extremity shortened and externally rotated. Sensation intact. Wiggles toes normal vascular status. X-rays of the left hip show subtrochanteric proximal femur fracture displaced X-rays the right hip show total hip arthroplasty components with radiolucency at the tip of the cement mantle of the prosthesis but prosthetic components in good alignment without evidence of fracture. There is also some radiolucency around the medial calcar. No baseline previous x-rays to compare Results Labs 11/08/24 05:33 11/08/24 05:33 Labs: Abnormal lab results 11/07/24 11/07/24 11/08/24 Range/Units 19:50 21:13 05:33 RBC 3.50 L (4.20-5.40) M/mm3 Hgb 10.2 L D (12.2-16.2) g/dL Hct 29.6 L (37.0-47.0) % [place] % (Auto) 9.7 H (1.7-9.3) % Chloride 108 H (98-107) mmol/L Carbon Dioxide 18 L (22.0-30.0) mmol/L Anion Gap 15.5 H (5-15) mEq/L Glucose 172 H 165 H (74-100) mg/dl POC Glucose (70-110) Hemoglobin A1c 6.2 H (4.0-6.0) % Calcium 8.0 L (8.4-10.2) mg/dl AST 51 H (14-36) U/L Total Protein 5.6 L (6.3-8.2) g/dl Albumin 2.8 L D (3.5-5.0) g/dl Globulin 3.5 H (1.3-3.2) g/dL Albumin/Globulin Ratio 1.0 L (1.1-1.8) 11/08/24 Range/Units 05:55 RBC (4.20-5.40) M/mm3 Hgb (12.2-16.2) g/dL Hct (37.0-47.0) % [place] % (Auto) (1.7-9.3) % Chloride (98-107) mmol/L Carbon Dioxide (22.0-30.0) mmol/L Anion Gap (5-15) mEq/L Glucose (74-100) mg/dl POC Glucose 202 H (70-110) Hemoglobin A1c (4.0-6.0) % Calcium (8.4-10.2) mg/dl AST (14-36) U/L Total Protein (6.3-8.2) g/dl Albumin (3.5-5.0) g/dl Globulin (1.3-3.2) g/dL Albumin/Globulin Ratio (1.1-1.8) H & H 11/07/24 11/08/24 Range/Units 21:13 05:33 Hgb 13.1 10.2 L D (12.2-16.2) g/dL Hct 38.7 29.6 L (37.0-47.0) % Coagulation 11/07/24 Range/Units 21:13 INR 0.94 (0.9-1.1) All other labs normal. Assessment and Plan *Assessment and plan (1) Closed left subtrochanteric femur fracture: Status: Acute Qualifiers: Encounter type: initial encounter Fracture alignment: displaced Qualified Code(s): S72.22XA - Displaced subtrochanteric fracture of left femur, initial encounter for closed fracture Category: Medical Code(s): S72.22XA - Displaced subtrochanteric fracture of left femur, initial encounter for closed fracture Plan Discussion with the patient and her family. Given the nature of the fracture operative intervention is indicated to allow for early ambulation. The nature of the fracture require cephalomedullary nailing she will be weightbearing as pain allows after surgery she has logistical issues in regards to returning home to [place]. We will follow her with physical therapy make recommendations based on her mobility in regards to the need for short-term rehab here prior to transferring home versus the ability to fly home and participate with rehabilitation at home. PROPOSED SURGERY: Cephalomedullary nailing left proximal femur the risks and benefits of the proposed surgery were discussed in depth with the patient. Potential complications including inherent risk of anesthesia, infection, neurovascular damage, DVT, and rare but real potential loss of limb or life were all reviewed. Patient voices understanding and seems to understand to my satisfaction and wishes to proceed with surgery. I gave them adequate time to ask any questions they have pertaining to this surgery and answered all of them to the best of my ability. I gave them no guarantees in regards to outcomes of this surgery.
--- NOTE | 2024-11-08 10:41 | PC.NURSE ---
Pt off floor to surgery
[2024-11-08] MEDS: 0.9 % SODIUM CHLORIDE 100 ML 25 ML IV (11:01)
[2024-11-08] MEDS: CEFAZOLIN 2GM VIAL 2 GM (11:01)
--- NOTE | 2024-11-08 12:58 | XR_ITS ---
FINAL REPORT CLINICAL HISTORY: CFN Lt hip in OR 2.0 min 22.14 mGy FINDINGS: FLUOROSCOPY LESS THAN 1 HOUR HISTORY: Fluoroscopy guidance. Fluoroscopic guidance was provided for left hip in the OR. 7 spot films were obtained. A total of 2.0 minutes of fluoroscopy time were used. Total DAP: 22.14 mGy IMPRESSION: As above. Reviewed, Interpreted and Dictated by Walt Mcdonald MD Transcribed by Marni Head Authenticated and [facility]
--- NOTE | 2024-11-08 13:33 | P.PNANES_ITS ---
[facility] Anesthesia Record Part I Anesthesia Record I Intake, IV Amount: 1,300 Hydration: Adequate Estimated blood loss (mL): 150 Urine output (mL): 800 Blood Products used (#): none Blood Pressure: 128/65 SaO2: 95 Pulse Rate: 63 Airway Patency: Patent Respiratory Rate: 16 Temperature: 98.5 F Patient is:: Drowsy and Stable Stable to PACU at:: 13:30
--- NOTE | 2024-11-08 13:40 | P.OP_ITS ---
Date of procedure: 11/08/24 Pre-op Diagnosis:: Left hip subtrochanteric proximal femur fracture Post-op Diagnosis:: Same Procedure performed:: Cephalomedullary nailing left proximal femur Surgeon:: Haris Riddle DO Histology Supervisor(s):: Kervin RODRIGUEZ PROBE OPERATOR:: Zach Flanagan Anesthesia: spinal Estimated blood loss (mL): 150 Operative findings:: See dictation Operative note:: Patient was identified preoperatively. Left hip marked with yes and my initials. Transported operative suite given spinal anesthesia and then transported over to the fracture table. Rodríguez catheter placed. With on the fracture table the left lower extremity was placed in line with the fracture table the right leg was placed into the semilithotomy position with care taken to protect the total hip arthroplasty on the right side. X-ray was then brought into identify the fracture on the left hip and the alignment. Final operative timeout was performed to identify proper patient procedure and extremity. Everyone involved the case agree. There is no counter indications beginning. She did receive preoperative antibiotics. X-ray and tract fracture table were utilized to reduce the fracture in the AP and medial lateral dimensions traction internal rotation allowed for reduction of the fracture. AP and lateral views were taken to identify reduction of the fracture once adequate reduction was performed attention was brought to proximal femur Guidewire was placed in the tip of the trochanter for starting point for cephalomedullary nail opening guidewire was placed on the AP and lateral views down through the fracture into the distal canal then the opening reamer for the [employer] TFN nail was utilized opening reamer was performed. Guidewire was then removed and a ball-tipped guidewire was selected ball-tipped guidewire was then placed through the opening reamer down through the fracture and the canal this was visualized on the AP and lateral views to confirm placement of the guidewire. Guidewire was then taken down to the knee and measured. Appropriate length nail was selected the flexible reamers were utilized for reaming across the fracture starting with a size 10 up to 13-1/2 reamer. Then a size 12 diameter nail was selected. The impactor was placed and this was placed over the guidewire through the fracture down through the femur. This gave good fill in the canal. The triple guide was then selected and the helical blade guidewire was placed through the guide both on the AP and lateral views to be lower on the calcar in the center aspect of the neck. Lateral cortex reamer was utilized followed by the step reamer and a size 95 helical blade was selected and impacted into place. It was then locked from the top and the health club manager was removed AP and lateral views confirmed good placement of the helical blade. Attention was then brought distal the leg was brought into slight abduction and the x-ray was brought in to find perfect oblong cervical at the distal aspect of the nail and then under direct visualization the distal locking screw was placed in the dynamic hole. This was measured and appropriate locking screws placed distally for completion of the nail insertion the health club manager was removed irrigation of the wound was performed. IT band closed with 0 Vicryl subcutaneous with 2-0 Vicryl surgical clips in the skin for closure. Sterile hip dressing placed patient waken anesthesia taken recovery in stable condition. Condition: stable Disposition: PACU Complications:: None apparent
[2024-11-08 14:01] LABS: POC Glucose,Bedside 97 (70-110)
--- NOTE | 2024-11-08 14:03 | SW/DCPLANNER ---
Addendum entered by Jordyn Moreland 11/09/24 14:05: Patient has been approved SNF level of care and will transport via ambulance to [facility] today. Addendum entered by Jordyn Moreland 11/09/24 12:05: Valeriano w/ [facility] stated that he can accept this patient and will start precert today once PT/OT evaluations are completed. Per Valeriano patient's daughter will be able to stay w/ her at facility. I will update patient, family and MD. Addendum entered by Jordyn Moreland 11/09/24 09:48: Patient and daughter present in room this AM. PT/OT evaluated patient and recommends SNF level of care. Patient initially preferred to return to [place] to start therapy but after further discussion is agreeable to stay locally. Patient is agreeable to [facility], [facility] and [facility]. Patient information will be faxed to facilities this AM. I will continue to follow up. Original Note: I spoke w/ patient this AM regarding plans once medically stable for discharge. Patient currently resides in [place] but was visiting family/friends in [place]. Patient stated she hopes to be able to return home to [place] following her procedure. I did explain to patient the possible need for SNF level of care. I will continue to follow up w/ patient. PT/OT is ordered to evaluate patient after procedure.
[2024-11-08 16:06] LABS: POC Glucose,Bedside 119 (70-110)
--- NOTE | 2024-11-08 16:25 | PC.NURSE ---
Pt awake and eating a chicken salad sandwhich at this time. Has c/o discomfort to bottom. Pt states that she has been on her bottom alot since her fracture. Pt repositioned in bed and states it has improved. Post op vitals completed. Pt is currently on 2L NC due to desats. Pt denies any soa. Blankets applied after pt visibly noted to be shivering. Temp was 98.7. DSG to (L) hip is C/D/I. Call light within reach. Family at bedside.
[2024-11-08] MEDS: HYDROCODONE/APAP 5/325 MG TABLET 2 TAB PO (17:29)
[2024-11-08] MEDS: CEFAZOLIN SODIUM 1 GM in 0.9 % SODIUM CHLORIDE 50 ML IV ×2 (17:48→22:25)
[2024-11-08 20:13] LABS: POC Glucose,Bedside 164 (70-110)
--- NOTE | 2024-11-08 20:29 | P.PN_ITS ---
Subjective *Date: 11/08/24 *Time: 20:29 Interval history: Patient tolerated cephalomedullary nailing well today. Case management assisting with placement. PT/OT in the morning. Exam Data for Last 24 hours Vital signs and Labs for Last 24 Hours: Temp Pulse Resp BP Pulse Ox O2 Del Method O2 Flow Rate 98.7 F 71 16 153/59 H 96 Nasal Cannula 2 11/08/24 15:30 11/08/24 16:00 11/08/24 16:00 11/08/24 16:00 11/08/24 16:00 11/08/24 19:00 11/08/24 19:00 Laboratory Results - last 24 hr 11/07/24 19:50: Hemoglobin A1c 6.2 H, TSH 0.97 11/07/24 21:13: WBC 9.0, RBC 4.56, Hgb 13.1, Hct 38.7, MCV 84.9, MCH 28.7, MCHC 33.9, RDW 13.8, Plt Count 198, MPV 9.3, Neut % (Auto) 60.4, Lymph % (Auto) 30.2, [place] % (Auto) 7.8, Eos % (Auto) 0.9, Baso % (Auto) 0.4, Neut # (Auto) 5.4, Lymph # (Auto) 2.7, [place] # (Auto) 0.7, Eos # (Auto) 0.1, Baso # (Auto) 0.0, PT 10.6, INR 0.94, Sodium 138, Potassium 3.5, Chloride 108 H, Carbon Dioxide 18 L, Anion Gap 15.5 H, BUN 13, Creatinine 0.70, Estimated Creat Clear 61, Estimated GFR 81, Est GFR ( Amer) 97, Glucose 172 H, Calcium 8.5, Total Bilirubin 0.7, AST 51 H, ALT 17, Alkaline Phosphatase 85, Total Protein 7.2, Albumin 3.7, Globulin 3.5 H, Albumin/Globulin Ratio 1.1, HCV Ab YUKO w/Rflx PCR Qn Negative, HIV Ag/Ab Combo Qual Negative 11/08/24 05:33: WBC 6.1 D, RBC 3.50 L, Hgb 10.2 L D, Hct 29.6 L, MCV 84.6, MCH 28.6, MCHC 33.8, RDW 13.7, Plt Count 161, MPV 9.7, Neut % (Auto) 65.6, Lymph % (Auto) 23.8, [place] % (Auto) 9.7 H, Eos % (Auto) 0.2, Baso % (Auto) 0.5, Neut # (Auto) 4.0, Lymph # (Auto) 1.5, [place] # (Auto) 0.6, Eos # (Auto) 0.0, Baso # (Au to) 0.0, Sodium 138, Potassium 3.5, Chloride 107, Carbon Dioxide 28, Anion Gap 6.5, BUN 13, Creatinine 0.70, Estimated Creat Clear 59, Estimated GFR 81, Est GFR ( Amer) 97, Glucose 165 H, Calcium 8.0 L, Magnesium 1.7, Total Bilirubin 0.3, AST 25 D, ALT 16, Alkaline Phosphatase 61, Total Protein 5.6 L, Albumin 2.8 L D, Globulin 2.8, Albumin/Globulin Ratio 1.0 L 11/08/24 05:55: POC Glucose 202 H 11/08/24 13:53: POC Glucose 97 11/08/24 15:57: POC Glucose 119 H 11/08/24 20:04: POC Glucose 164 H I & O for Last 24 hours: Intake & Output 11/05/24 11/06/24 11/07/24 11/08/24 23:59 23:59 23:59 23:59 Intake Total 1600 / 1600 Output Total 100 / 100 Balance 1500 / 1500 Weight 86.183 kg 83.915 kg Constitutional Constitutional: no acute distress *Routine HEENT Exam Head: Present normocephalic Eye: Present EOMI and PERRL ENT: Present mucous membranes moist *Routine Neck Exam Neck: Present supple; Absent lymphadenopathy *Routine Respiratory Exam Respiratory: Present CTA bilaterally *Routine Cardiovascular Exam Cardiovascular: Present RRR *Routine Abdominal Exam Abdominal: Present soft and normoactive bowel sounds; Absent tenderness *Routine Extremities Exam Extremities: Absent cyanosis, clubbing or edema Comments: Left hip dressed over incision site. Neurovascularly intact. *Routine Skin Exam Skin: Present warm; Absent rash *Routine Neurological Exam Neurological: Present alert and oriented X3 Assessment and Plan *Assessment and plan (1) Left hip pain: Status: Acute Category: Medical Code(s): M25.552 - Pain in left hip (2) Fracture, intertrochanteric, left femur: Status: Acute Qualifiers: Encounter type: initial encounter Fracture type: closed Fracture alignment: displaced Qualified Code(s): S72.142A - Displaced intertrochanteric fracture of left femur, initial encounter for closed fracture Category: Medical Code(s): S72.142A - Displaced intertrochanteric fracture of left femur, initial encounter for closed fracture (3) Hypothyroid: Status: Chronic Qualifiers: Hypothyroidism type: acquired Qualified Code(s): E03.9 - Hypothyroidism, unspecified Category: Medical Code(s): E03.9 - Hypothyroidism, unspecified (4) Diabetes: Status: Chronic Qualifiers: Diabetes mellitus type: type 2 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 Diabetes mellitus complication status: without complication Qualified Code(s): E11.9 - Type 2 diabetes mellitus without complications Category: Medical Code(s): E11.9 - Type 2 diabetes mellitus without complications (5) HTN (hypertension): Status: Chronic Qualifiers: Hypertension type: primary hypertension Qualified Code(s): I10 - Essential (primary) hypertension Category: Medical Code(s): I10 - Essential (primary) hypertension (6) Osteopenia: Status: Chronic Category: Medical Code(s): M85.80 - Other specified disorders of bone density and structure, unspecified site Plan Ghada Fatima is a 79-year-old female who fell walking into her air B&B. Broke her left hip. Discussed case with ER physician, request admission for evaluation by Ortho. S/p left cephalomedullary nailing. Patient tolerated procedure well. #Left intertrochanteric fracture ? Orthopedic surgery consulted, s/p cephalomedullary nailing on 11/08/2024. Patient tolerated procedure well. ? Will likely need SNF, discussed with case management and assisting with placement. May be challenging as patient is from [place], most realistic option at this time will be short-term rehab in this area then discharged to [place]. However, patient improved significantly in the next few days, may be able to place in [place] SNF. ? [place], Toradol as needed for pain control. ? Aspirin 81 mg twice daily for DVT prophylaxis. ? Pending further recommendations from orthopedic surgery, including WBAT and dressing changes. ? Follow-up B12, folate levels. #Diabetes: A1c 6.2. Initiate sliding scale insulin and fingersticks ACHS. Holding glipizide #Hypothyroid: TSH controlled at 0.97. Follow-up free T4 as this is low normal. Continue levothyroxine 50 mcg daily Full code Regular diet DVT prophylaxis: Aspirin 81 mg twice daily
[2024-11-08] MEDS: ASPIRIN 81MG CHEWABLE TABLET 81 MG PO (21:33)
[2024-11-09] VITALS: BP 134/64; PULSE 96; RESP 20; TEMP 37; O2SAT 95
[2024-11-09 04:00] VITALS: BP 137/67; PULSE 83; RESP 14; TEMP 37; O2SAT 95; BMI 30.7
--- NOTE | 2024-11-09 04:41 | PC.NURSE ---
Pt AOx4. Pt currently resting in bed with eyes closed. Daughter at bedside. Respirations even and unlabored. Bed is low, locked, and call light is in reach.
[2024-11-09 05:54] LABS: POC Glucose,Bedside 132 (70-110)
[2024-11-09] MEDS: LEVOTHYROXINE 50MCG (0.05MG) TAB 50 MCG PO (06:08)
[2024-11-09 06:31] LABS: Basophils % 0.4 % (0.1-2.0); Eosinophils # 0.1 Kmm3 (0.0-0.4); Hematocrit 32.8 % (37.0-47.0); Hemoglobin 10.7 g/dL (12.2-16.2); Lymphocytes % 17.5 % (10-50); Mean Corpuscular HGB Conc 32.6 g/dL (31.8-35.4); Mean Corpuscular Hemoglobin 28.2 pg (27.0-31.2); Mean Corpuscular Volume 86.5 fl (81-99); Mean Platelet Volume 9.8 fl (7.4-10.4); Monocytes # 0.5 K/mm3 (0.1-1.0); Monocytes % 8.5 % (1.7-9.3); Neutrophils # 3.9 K/mm3 (1.8-7.8); Neutrophils % 71.4 % (37.0-80.0); Nucleated Red Blood Cells # 0 10^3/uL; Nucleated Red Blood Cells % 0 %; Platelet Count 161 K/mm3 (142-424); Red Blood Count 3.79 M/mm3 (4.20-5.40); Red Cell Distribution Width 14.1 % (11.5-17.5); Red Cell Distribution Width-SD 44.3 fL; White Blood Count 5.4 K/mm3 (4.8-10.8)
[2024-11-09 06:32] LABS: Albumin Level 3.1 g/dl (3.5-5.0); Chloride 107 mmol/L (98-107); Potassium 4.4 mmoL/L (3.5-5.1); Sodium 140 mmol/L (136-145)
[2024-11-09 06:34] LABS: Blood Urea Nitrogen 9 mg/dl (7-17); Creatinine Clearance Estimated 61 mL/min (50-200); Estimated Glomerular Filt Rate 69 ml/min (>60); GFR (African American) 84 ML/MIN (>60)
[2024-11-09 06:35] LABS: Alanine Aminotransferase 13 U/L (12-78); Alkaline Phosphatase 82 U/L (38-126); Anion Gap 10.4 mEq/L (5-15); Aspartate Amino Transferase 26 U/L (14-36); Bilirubin,Total 0.6 mg/dl (0.2-1.3); Calcium 8.4 mg/dl (8.4-10.2); Carbon Dioxide 27 mmol/L (22.0-30.0); Globulin 3.1 g/dL (1.3-3.2); Glucose 137 mg/dl (74-100); Total Protein,Serum 6.2 g/dl (6.3-8.2)
[2024-11-09] MEDS: HYDROCODONE/APAP 5/325 MG TABLET 2 TAB PO ×2 (07:00→14:15)
[2024-11-09 07:38] LABS: Magnesium 2.2 mg/dl (1.6-2.3)
[2024-11-09 07:48] VITALS: BP 134/60; PULSE 86; RESP 18; TEMP 37.3
[2024-11-09] MEDS: ASPIRIN 81MG CHEWABLE TABLET 81 MG PO (08:00)
--- NOTE | 2024-11-09 08:44 | EXP.ANES.II ---
[facility] Anesthesia Record Part II Anesthesia Record Part II Discharge Time: 14:00 Destination: Medical Surgical Department PACU nurse assessment reviewed?: Yes Patient Condition:: Good Anesthesia Complications:: None Swallowing reflex intact?: Yes Airway Patency: Patent Cyanosis?: No Blood Pressure: 138/58 SaO2: 98 Respiratory Rate: 16 Pulse Rate: 61 Temperature: 98.5 F Mental Status: Alert & Oriented Pain level:: 0 Nausea and/or vomitting:: None Intake, IV Amount: 0 Hydration: Adequate
[2024-11-09 08:46] VITALS: BP 138/58; PULSE 61; RESP 16; TEMP 36.9; O2SAT 98
[2024-11-09 09:26] LABS: Folate 7.46 ng/mL
--- NOTE | 2024-11-09 09:31 | P.PN_ITS ---
Subjective *Date: 11/09/24 *Time: 11:00 Interval history: Patient having pain at the site. Most prominent when nursing rolled her this morning. Continues to require 1 L oxygen due to O2 sats in the 80s. Denies chest pain, nausea, vomiting. Alert and oriented x 4. Family at bedside Medical Exam Vital signs and Labs for Last 24 Hours: Vital Signs Temp Pulse Pulse Resp BP BP Pulse Ox 11/09/24 08:46 16 11/09/24 07:48 99.2 F 86 18 134/60 11/09/24 06:26 11/09/24 05:00 11/09/24 04:00 98.6 F 83 14 137/67 95 11/09/24 03:00 11/09/24 01:00 11/09/24 00:00 98.6 F 96 H 20 134/64 95 11/08/24 23:00 11/08/24 21:00 11/08/24 20:00 99.8 F H 89 16 152/82 H 95 11/08/24 20:00 99.8 F H 89 16 152/82 H 95 11/08/24 20:00 11/08/24 19:00 11/08/24 17:00 11/08/24 16:00 71 16 153/59 H 96 11/08/24 15:30 98.7 F 70 17 156/63 H 90 L 11/08/24 15:00 69 16 150/65 H 90 L 11/08/24 15:00 11/08/24 14:45 71 16 141/68 H 92 L 11/08/24 14:30 67 16 152/81 H 94 L 11/08/24 14:15 67 17 149/72 H 96 11/08/24 14:00 97.7 F 69 17 129/70 96 11/08/24 14:00 98.5 F 61 16 138/58 L 98 11/08/24 13:50 98.5 F 62 16 134/53 L 97 11/08/24 13:40 98.5 F 61 16 133/61 97 11/08/24 13:33 98.5 F 63 16 128/65 11/08/24 13:30 98.5 F 63 16 128/65 95 11/08/24 10:43 98.3 F 75 16 125/64 93 L O2 Del Method O2 Flow Rate 11/09/24 08:46 11/09/24 07:48 11/09/24 06:26 Room Air 11/09/24 05:00 Room Air 11/09/24 04:00 Room Air 11/09/24 03:00 Room Air 11/09/24 01:00 Room Air 11/09/24 00:00 Room Air 11/08/24 23:00 Room Air 11/08/24 21:00 Nasal Cannula 2 11/08/24 20:00 Room Air 11/08/24 20:00 Nasal Cannula 2 11/08/24 20:00 Room Air 11/08/24 19:00 Nasal Cannula 2 11/08/24 17:00 Nasal Cannula 2 11/08/24 16:00 Nasal Cannula 2 11/08/24 15:30 Room Air 11/08/24 15:00 Room Air 11/08/24 15:00 Room Air 11/08/24 14:45 Room Air 11/08/24 14:30 Room Air 11/08/24 14:15 Room Air 11/08/24 14:00 Room Air 11/08/24 14:00 Room Air 11/08/24 13:50 Room Air 11/08/24 13:40 Room Air 11/08/24 13:33 11/08/24 13:30 Room Air 11/08/24 10:43 Room Air Intake and Output 11/08/24 11/09/24 11/09/24 23:59 07:59 15:59 Intake Total 200 / 1600 310 / 310 Output Total 2099 / 2099 Balance 200 / -600 -2100 / -1790 310 / -1790 Intake: Intake, Oral Amount 100 / 100 310 / 310 Intake, Total IV Amount 100 / 1500 0 / 0 Magnesium Sulfate in Water 2 gm 100 / 100 In 50 ml @ 50 mls/hr IV Q1H [facility] Rx#:[id number] Output: Output, Urine Amount 2099 / 2099 Other: Number of Unmeasured Voids 850 Weight 86.545 kg Patient Weight 11/09/24 23:59 Weight 86.545 kg Laboratory Results - last 24 hr 11/08/24 13:53: POC Glucose 97 11/08/24 15:57: POC Glucose 119 H 11/08/24 20:04: POC Glucose 164 H 11/09/24 05:33: WBC 5.4, RBC 3.79 L, Hgb 10.7 L, Hct 32.8 L, MCV 86.5, MCH 28.2, MCHC 32.6, RDW 14.1, Plt Count 161, MPV 9.8, Neut % (Auto) 71.4, Lymph % (Auto) 17.5, [place] % (Auto) 8.5, Eos % (Auto) 2.0, Baso % (Auto) 0.4, Neut # (Auto) 3.9, Lymph # (Auto) 1.0, [place] # (Auto) 0.5, Eos # (Auto) 0.1, Baso # (Auto) 0.0, Sodium 140, Potassium 4.4 D, Chloride 107, Carbon Dioxide 27, Anion Gap 10.4, BUN 9 D, Creatinine 0.80, Estimated Creat Clear 61, Estimated GFR 69, Est GFR ( Amer) 84, Glucose 137 H, Calcium 8.4, Magnesium 2.2 D, Total Bilirubin 0.6, AST 26, ALT 13, Alkaline Phosphatase 82, Total Protein 6.2 L, Albumin 3.1 L D, Globulin 3.1, Albumin/Globulin Ratio 1.0 L, Folate 7.46 11/09/24 05:45: POC Glucose 132 H I & O for Labs for Last 24 Hours: Intake & Output 11/06/24 11/07/24 11/08/24 11/09/24 23:59 23:59 23:59 23:59 Intake Total 1600 / 1600 310 / 310 Output Total 100 / 2200 2100 / 2100 Balance 1500 / -600 -1790 / -1790 Weight 86.183 kg 83.915 kg 86.545 kg Constitutional: Present no acute distress, obese and cooperative Head: Present atraumatic and normocephalic ENT: Present normal exam Respiratory: Present crackles (bases) and normal respiratory effort; Absent respiratory distress or wheezes Cardiac: Present Reg Rate and Rhythm GI: Present normal bowel sounds; Absent tenderness Extremities: Present normal inspection and full ROM Comment:: Tender over left hip, surgical bandage clean dry and intact Skin: Present intact; Absent erythema Neuro: Present Grossly Intact, alert, awake, oriented x 3 and moves all extremities Assessment and Plan *Assessment and plan (1) Left hip pain: Status: Acute Category: Medical Code(s): M25.552 - Pain in left hip (2) Fracture, intertrochanteric, left femur: Status: Acute Qualifiers: Encounter type: initial encounter Fracture type: closed Fracture alignment: displaced Qualified Code(s): S72.142A - Displaced intertrochanteric fracture of left femur, initial encounter for closed fracture Category: Medical Code(s): S72.142A - Displaced intertrochanteric fracture of left femur, initial encounter for closed fracture (3) Hypothyroid: Status: Chronic Qualifiers: Hypothyroidism type: acquired Qualified Code(s): E03.9 - Hypothyroidism, unspecified Category: Medical Code(s): E03.9 - Hypothyroidism, unspecified (4) Diabetes: Status: Chronic Qualifiers: Diabetes mellitus type: type 2 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 insulin use: without manager long term care use Diabetes mellitus complication status: without complication Qualified Code(s): E11.9 - Type 2 diabetes mellitus without complications Category: Medical Code(s): E11.9 - Type 2 diabetes mellitus without complications (5) HTN (hypertension): Status: Chronic Qualifiers: Hypertension type: primary hypertension Qualified Code(s): I10 - Essential (primary) hypertension Category: Medical Code(s): I10 - Essential (primary) hypertension (6) Osteopenia: Status: Chronic Category: Medical Code(s): M85.80 - Other specified disorders of bone density and structure, unspecified site Plan Ghada Fatima is a 79-year-old female who fell walking into her air B&B. Broke her left hip. Discussed case with ER physician, request admission for evaluation by Ortho. S/p left cephalomedullary nailing 11/08. Tolerated proced ure well. Doing well this morning. Weaning oxygen. Working with therapy. Case management assisting with placement recommendations. Problems addressed as follows: #Left intertrochanteric fracture ? Orthopedic surgery consulted, s/p cephalomedullary nailing on 11/08/2024. Patient tolerated procedure well. ? Therapy evaluated, recommend SNF placement. Case management assisting. Logistical issues with patient being from out of town. Currently looking at [facility]. Will consider [facility] if not approved by [employer]. Would like to have patient mobile enough to fly home in the coming weeks. - Continue [place] as needed every 6 hours for pain along with Toradol 30 mg IV. Monitor for toxicity ? Aspirin 81 mg twice daily for DVT prophylaxis. ? Discussed with therapy and orthopedics today, weight-bear as tolerated, dressing change in the morning. Okay to transition to aspirin 325 mg once daily per home regimen at discharge - White count 5.4, hemoglobin 10.7. Kidney function normal with BUN 9, creatinine 0.8. Repeat CBC, CMP, magnesium ordered for the morning - Continues to have oxygen requirement of 1 to 2 L due to saturations in the mid 80s. Appears to have some mild pulmonary congestion, lower lungs with crackles, concerning for edema. Diurese x 1 with Lasix 40 mg IV. Wean oxygen as tolerated, goal sats greater 90%. #Diabetes: A1c 6.2. Initiate sliding scale insulin and fingersticks ACHS. Holding glipizide #Hypothyroid: TSH controlled at 0.97. Follow-up free T4 as this is low normal. Continue levothyroxine 50 mcg daily Full code Regular diet DVT prophylaxis: Aspirin 81 mg twice daily
[2024-11-09] MEDS: FUROSEMIDE 40MG/4ML VIAL 40 MG IV (10:03)
[2024-11-09] MEDS: AMLODIPINE 5MG TABLET 5 MG PO (10:37)
--- NOTE | 2024-11-09 10:46 | HMH.PTEV ---
Physical Therapy Evaluation Rehab PT IP Evaluation Start: 11/08/24 13:47 Freq: ONCE Status: Active Protocol: Document 11/09/24 09:10 [facility] (Rec: 11/09/24 10:46 PHORARPITA [id number]) Subjective/History History History Ms. Fatima is an 79-year -old female with history of hypertension, diabetes, hypothyroid. She is visiting [place] from [place]. Pt fell and sustained a L femur fx is s/p cephalomedullary nailing on 11/08/2024. Pt also has a hx of R total hip replacement. Pt states that she is independent with all mobility at baseline and does not use an AD. Subjective Subjective Pt presents resting supine in bed with 3 family members present in the room. She is alert and oriented and willing to participate with PT/OT this am. Pt does not c/o any pain at rest, but verbally signaled some pain in her L hip during ambulation. During ~10 ft of ambulation, pt reported feelings of lightheadedness, appeared diaphoretic and asked to sit down. Pt transferred safely to bedside chair and felt improved a few minutes after sitting. [facility] How much help from another person do you currently need... Turning from your back to your side None while in a flat bed without using bedrails? Moving from lying on back to sitting on A little the side of a flat bed without using bedrails? Moving to and from a bed to a chair ( A little including a wheelchair)? Standing up from a chair using your arms A little ? (e.g., wheelchair, bedside chair) Walking in hospital room? A little Climbing 3-5 steps with a railing? A little Mobility Score 19 Mobility Level [facility] Mobility Calculator Mobility 6 Walk 10 steps or more Rehab PT IP Eval Objective Appearance Patient Behavior Appropriate,Cooperative Patient Orientation Person,Place,Time Difficulty following instructions none Speech Pattern Clear,Appropriate Ambulation Patient Able to Ambulate Yes Ambulation Observation IP General Gait Pattern Observation Antalgic Gait,Decrease Weight Bear (L) Ambulation Distance (feet) 10 Ambulation Assistive Device Rolling Walker Ambulation Ability Contact Guard/Hand Hold Balance Ability to Arise Able, uses arms to help Sitting Balance Steady, safe Standing Balance Steady, wide stance Dynamic Sitting Balance Ability Normal Dynamic Standing Balance Ability Normal Transfers Bed Transfer Ability Minimal x 1 (25% assist) Chair Transfer Ability Minimal x 1 (25% assist) Sit to Stand Bed Transfer Ability Minimal x 1 (25% assist) Sit to Stand Chair Transfer Ability Minimal x 1 (25% assist) Rehab PT IP prob,goals,plan Problems Date of Evaluation: 11/09/24 PT IP Problems Bed Mobility,Transfers,Gait, Balance,Safety Rehab Potential Rehab Potential Good Equipment Needs Assistive Devices Rolling / Wheeled Walker Plan PT Intervention Plan Bed Mobility,Transfers,Gait, Balance,Safety,Therapeutic Exercise PT Plan Frequency Daily Duration LOS Discharge Goals Bed Transfer Ability Independent Sit to Stand Chair Transfer Ability Contact Guard/Hand Hold Ambulation Distance (feet) 20 Discharge Plan PT Discharge Plan Pt is currently most appropriate for placement in a rehab facility once medically stable for d/c. Pt was able to ambulate ~10 feet with CGA, distance limited due to pain and lightheadedness. Skilled acute therapy is currently indicated to improve LE strength and L LE weight bearing tolerance to return to PLOF with all ADLs, transfers , and ambulation ability. Eval Complexity Eval Charge Codes 50568 - High Complexity PHYSICIAN CERTIFICATION: I certify the specified therapy services for Ghada Fatima are required, authorized, and reviewed every 30 days.
[2024-11-09 10:48] LABS: POC Glucose,Bedside 202 (70-110)
[2024-11-09] MEDS: humaLOG 100 UNITS/ML 10ML VIAL (SSI) SUBCUT (10:59)
[2024-11-09 11:11] LABS: Vitamin B12 425 pg/mL (239-931)
[2024-11-09 11:35] VITALS: BP 115/65; PULSE 75; RESP 18; TEMP 36.8; O2SAT 98
--- NOTE | 2024-11-09 12:20 | HMH.OTEV ---
OT Inpatient Evaluation Rehab OT IP Evaluation Start: 11/08/24 14:10 Freq: ONCE Status: Active Protocol: Document 11/09/24 12:16 [facility] (Rec: 11/09/24 12:20 [facility] [id number]) Rehab OT IP Assessment Subjective History Ms. Fatima is an 79-year -old female with history of hypertension, diabetes, hypothyroid. She is visiting [place] from [place]. Pt fell and sustained a L femur fx is s/p cephalomedullary nailing on 11/08/2024. Pt also has a hx of R total hip replacement. Pt states that she is independent with all functional mobility tasks at baseline and does not use an AD. She also claims to be independent with all ADLs and IADLs prior as well. Subjective Pt presents resting supine in bed with 3 family members present in the room. She is alert and oriented and willing to participate with PT/OT this am. Pt does not c/o any pain at rest, but verbally signaled some pain in her L hip during ambulation. During ~10 ft transfer, pt reported feelings of lightheadedness, appeared diaphoretic and asked to sit down. Pt transferred safely to bedside chair and felt improved a few minutes after sitting. Objective Patient Orientation Person,Place,Birthday Right Upper Extremity Gross ROM WFL Left Upper Extremity Gross ROM WFL Bed Mobility bed mobility-scooting,bed mobility - supine/sit Assist Level Minimal x 1 (25% assist) Transfer Training Sit/Stand Transfer Assist Level Minimal x 1 (25% assist) Chair Transfer Ability Minimal x 1 (25% assist) Chair Transfer Technique Sit to/from Ambulatory Chair Transfer Assistive Devices Rolling Walker Rehab OT IP prob,goals,plan Problems Date of Evaluation: 11/09/24 OT IP Problems Bed Mobility,Transfers,Balance ,Self care,Safety Rehab Potential Rehab Potential Good Equipment Needs Assistive Devices Rolling / Wheeled Walker Plan OT intervention Plan Bed Mobility,Transfers,Balance ,Self care,Safety,Therapeutic Exercise OT Plan Frequency Daily Duration LOS Discharge Goals Bed Mobility Ability Standby Assistance Sit to Stand Chair Transfer Ability Contact Guard/Hand Hold Chair Transfer Ability Contact Guard/Hand Hold Chair Transfer Technique Sit to/from Ambulatory Chair Transfer Assistive Devices Rolling Walker Lower Body Dressing Ability Moderate Assistance Upper Body Dressing Ability Contact Guard Bathing Ability Moderate Assistance Performing Toilet Hygiene Ability Minimal Assistance Overall Commode/Toilet Transfer Ability Contact Guard Commode/Toilet Transfer Technique Sit to/from Ambulatory Commode/Toilet Transfer Assistive Grab Bars Devices Oral Care Assist Standby Assistance Discharge Plan OT Discharge Plan Pt is currently most appropriate for placement in a rehab facility once medically stable for d/c. Pt was able to transfers a short distance ~10 feet with CGA, distance limited due to pain and lightheadedness. Skilled acute therapy is currently indicated to improve overall functional transfers, ADL independence, safety, and strength to reach PLOF. Eval Complexity Eval Charge Codes 09676 - Moderate Complexity PHYSICIAN CERTIFICATION: I certify the specified therapy services for Ghada Fatima are required, authorized, and reviewed every 30 days.
[2024-11-09 12:21] VITALS: BMI 30.7
--- NOTE | 2024-11-09 13:28 | EXP.DC.SUM ---
General Admission date:: 11/07/24 Discharge date: 11/09/24 HPI HPI HPI: Ms. Fatima is an 79-year-old female with history of hypertension, diabetes, hypothyroid. She is visiting [place] from [place]. Went to the parking counter earlier today. On her way back into her air BNB this evening she fell going up the stairs. She fell back on her bottom. When she tried to get up, she had acute onset of left hip pain. Denies loss of consciousness. Did not hit her head. Also hit her right elbow. Workup in the ER showed essentially normal labs. Imaging of right arm with no fracture. Left hip has intertrochanteric fracture. Medicine consulted for admission and further management. Plan for orthopedics to evaluate in the morning Patient on 1 L oxygen for comfort on arrival to the floor. Denies chest pain or shortness of breath. Denies nausea or vomiting. Alert and oriented x 4. Family at bedside. Patient previously had right hip replaced several years ago. Denies any significant allergies. Hospital Course Hospital Course Hospital Course: Ghada Fatima is a 79-year-old female who fell walking into her air B&B. Broke her left hip. Discussed case with ER physician, request admission for evaluation by Ortho. S/p left cephalomedullary nailing 11/08. Tolerated procedure well. Doing well this morning. Weaning oxygen. Working with therapy. Stable to discharge to rehab. Graciously accepted by [facility] for further management. Problems addressed as follows: #Left intertrochanteric fracture ? Patient had a mechanical fall from standing height, sustained left intertrochanteric fracture. Was brought to the ER for further management. Orthopedics was consulted, s/p cephalomedullary nailing on 11/08/2024. Patient tolerated procedure well. Therapy evaluated, recommend SNF placement. Case management assisting. Logistical issues with patient being from out of town. Accepted by [facility] for further rehab. Goal is for patient to fly home to [place] in the coming weeks. Tolerating [place] for pain control, continue every 6 hours as needed. Continue home aspirin 325 mg daily for DVT prophylaxis. Patient is weightbearing as tolerated. Labs stable on day of discharge with White count 5.4, hemoglobin 10.7. Kidney function normal with BUN 9, creatinine 0.8. Repeat CBC, CMP, magnesium in 3 to 5 days to monitor stability. Had mild oxygen requirement after surgery, responded well to 1 dose of diuretic. To be able to wean to room air. No concern for pneumonia, suspect mild volume overload. Hypertension: holding blood pressure medication at this time with her amlodipine due to normotensive state. Reevaluate use of amlodipine in the SNF setting if blood pressure continues to elevate #Diabetes: A1c 6.2. Treated with sliding scale during admission, resume glipizide at discharge. #Hypothyroid: TSH controlled at 0.97. Continue levothyroxine 50 mcg daily Total time spent on discharge 35 minutes in counseling, documentation, chart review, and direct care with patient. Exam Data for Last 24 hours Vital signs and Labs for Last 24 Hours: Temp Pulse Resp BP Pulse Ox O2 Del Method O2 Flow Rate 98.2 F 75 18 115/65 98 Nasal Cannula 1 11/09/24 11:35 11/09/24 11:35 11/09/24 11:35 11/09/24 11:35 11/09/24 11:35 11/09/24 11:35 11/09/24 11:35 Laboratory Results - last 24 hr 11/08/24 13:53: POC Glucose 97 11/08/24 15:57: POC Glucose 119 H 11/08/24 20:04: POC Glucose 164 H 11/09/24 05:33: WBC 5.4, RBC 3.79 L, Hgb 10.7 L, Hct 32.8 L, MCV 86.5, MCH 28.2, MCHC 32.6, RDW 14.1, Plt Count 161, MPV 9.8, Neut % (Auto) 71.4, Lymph % (Auto) 17.5, [place] % (Auto) 8.5, Eos % (Auto) 2.0, Baso % (Auto) 0.4, Neut # (Auto) 3.9, Lymph # (Auto) 1.0, [place] # (Auto) 0.5, Eos # (Auto) 0.1, Baso # (Auto) 0.0, Sodium 140, Potassium 4.4 D, Chloride 107, Carbon Dioxide 27, Anion Gap 10.4, BUN 9 D, Creatinine 0.80, Estimated Creat Clear 61, Estimated GFR 69, Est GFR ( Amer) 84, Glucose 137 H, Calcium 8.4, Magnesium 2.2 D, Total Bilirubin 0.6, AST 26, ALT 13, Alkaline Phosphatase 82, Total Protein 6.2 L, Albumin 3.1 L D, Globulin 3.1, Albumin/Globulin Ratio 1.0 L, Vitamin B12 425, Folate 7.46 11/09/24 05:45: POC Glucose 132 H 11/09/24 10:38: POC Glucose 202 H I & O for Last 24 hours: Intake & Output 11/06/24 11/07/24 11/08/24 11/09/24 23:59 23:59 23:59 23:59 Intake Total 1600 / 1600 310 / 310 Output Total 100 / 2200 2100 / 2100 Balance 1500 / -600 -1790 / -1790 Weight 86.183 kg 83.915 kg 86.54 kg Constitutional Constitutional: no acute distress, obese and cooperative *Routine HEENT Exam Head: Present normocephalic Eye: Present EOMI and PERRL ENT: Present mucous membranes moist *Routine Neck Exam Neck: Present supple; Absent lymphadenopathy *Routine Respiratory Exam Respiratory: Present CTA bilaterally; Absent respiratory distress, stridor, wheezes or crackles *Routine Cardiovascular Exam Cardiovascular: Present RRR *Routine Abdominal Exam Abdominal: Present soft and normoactive bowel sounds; Absent tenderness *Routine Rectal Exam Patient deferred: visual exam *Routine Exam Patient deferred: external exam *Routine Extremities Exam Extremities: Absent cyanosis, clubbing or edema Comments: left hip with clean dry and intact surgical wound, tender to palpation *Routine Skin Exam Skin: Present warm; Absent rash *Routine Neurological Exam Neurological: Present alert, oriented X3 and moving all extremities; Absent altered mental status Results Data Completed and Pending Labs on day of discharge: Labs from last 24 hours 11/09/24 11/09/24 11/09/24 10:38 05:45 05:33 WBC 5.4 RBC 3.79 L Hgb 10.7 L Hct 32.8 L MCV 86.5 MCH 28.2 MCHC 32.6 RDW 14.1 Plt Count 161 MPV 9.8 Neut % (Auto) 71.4 Lymph % (Auto) 17.5 [place] % (Auto) 8.5 Eos % (Auto) 2.0 Baso % (Auto) 0.4 Neut # (Auto) 3.9 Lymph # (Auto) 1.0 [place] # (Auto) 0.5 Eos # (Auto) 0.1 Baso # (Auto) 0.0 Sodium 140 Potassium 4.4 D Chloride 107 Carbon Dioxide 27 Anion Gap 10.4 BUN 9 D Creatinine 0.80 Estimated Creat Clear 61 Estimated GFR 69 Est GFR ( Amer) 84 Glucose 137 H POC Glucose 202 H 132 H Calcium 8.4 Magnesium 2.2 D Total Bilirubin 0.6 AST 26 ALT 13 Alkaline Phosphatase 82 Total Protein 6.2 L Albumin 3.1 L D Globulin 3.1 Albumin/Globulin Ratio 1.0 L Vitamin B12 425 Folate 7.46 11/08/24 11/08/24 11/08/24 20:04 15:57 13:53 WBC RBC Hgb Hct MCV MCH MCHC RDW Plt Count MPV Neut % (Auto) Lymph % (Auto) [place] % (Auto) Eos % (Auto) Baso % (Auto) Neut # (Auto) Lymph # (Auto) [place] # (Auto) Eos # (Auto) Baso # (Auto) Sodium Potassium Chloride Carbon Dioxide Anion Gap BUN Creatinine Estimated Creat Clear Estimated GFR Est GFR ( Amer) Glucose POC Glucose 164 H 119 H 97 Calcium Magnesium Total Bilirubin AST ALT Alkaline Phosphatase Total Protein Albumin Globulin Albumin/Globulin Ratio Vitamin B12 Folate DS: Diagnosis Discharge Diagnosis (1) Left hip pain: Status: Acute Code(s): M25.552 - Pain in left hip (2) Fracture, intertrochanteric, left femur: Status: Acute Code(s): S72.142A - Displaced intertrochanteric fracture of left femur, initial encounter for closed fracture Qualifiers: Encounter type: initial encounter Fracture type: closed Fracture alignment: displaced Qualified Code(s): S72.142A - Displaced intertrochanteric fracture of left femur, initial encounter for closed fracture (3) Hypothyroid: Status: Chronic Code(s): E03.9 - Hypothyroidism, unspecified Qualifiers: Hypothyroidism type: acquired Qualified Code(s): E03.9 - Hypothyroidism, unspecified (4) Diabetes: Status: Chronic Code(s): E11.9 - Type 2 diabetes mellitus without complications Qualifiers: Diabetes mellitus type: type 2 Diabetes mellitus 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 use: without local intermodal truck driver use Diabetes mellitus complication status: without complication Qualified Code(s): E11.9 - Type 2 diabetes mellitus without complications (5) HTN (hypertension): Status: Chronic Code(s): I10 - Essential (primary) hypertension Qualifiers: Hypertension type: primary hypertension Qualified Code(s): I10 - Essential (primary) hypertension (6) Osteopenia: Status: Chronic Code(s): M85.80 - Other specified disorders of bone density and structure, unspecified site Meds Home Medications and Allergies Home Medications ?Medication ?Instructions ?Recorded ?Confirmed ?Type amlodipine 5 mg tablet 5 mg PO DAILY 11/07/24 11/07/24 History vit C 250 mg-vit E 200 unit-zinc 2 cap PO DAILY 11/07/24 11/07/24 History ox 12.5 ub-[id number]-xgzkgf-zeax capsule alendronate 70 mg tablet 70 mg PO WEEKLY 14 days #2 tabs 11/09/24 Rx aspirin 325 mg tablet 325 mg PO DAILY 15 days #15 tabs 11/09/24 Rx glipizide 10 mg tablet 10 mg PO DAILY 14 days #14 tabs 11/09/24 Rx hydrocodone 5 mg-acetaminophen 325 1 tab PO Q6HP PRN Moderate To 11/09/24 Rx mg tablet Severe Pain (4-10) 3 days #12 tabs levothyroxine 50 mcg tablet 50 mcg PO DAILY 15 days #15 tabs 11/09/24 Rx pantoprazole 40 mg tablet,delayed 40 mg PO HS 15 days #15 tabs 11/09/24 Rx release New Prescriptions to Start Prescriptions: alendronate Moriah,Rajesh aspirin Moriah,Rajesh glipizide Moriah,Rajesh hydrocodone-acetaminophen Moriah,Rajesh levothyroxine Moriah,Rajesh pantoprazole Rajesh Major Allergies Allergy/AdvReac Type Severity Reaction Status Date / Time No Known Allergies Allergy Verified 11/08/24 01:08 Discharge Plan Disposition Patient Disposition: [facility] Condition: Fair Discharge Order Discharge Orders: Discharge Order (Routine); Ordered 11/09/24 Ordered By: Rajesh Major Follow up Plan Follow up with: Haris Riddle DO [Staff Physician] - Enter time for follow up Prescriptions/Medication Reconciliation: New hydrocodone-acetaminophen 5-325 mg Tablet 1 tab PO Q6HP PRN (Reason: Moderate To Severe Pain (4-10)) 3 Days Qty: 12 0RF pantoprazole 40 mg Tablet,Delayed Release (Dr/Ec) 40 mg PO HS 15 Days Qty: 15 0RF Continued vit C-E-zinc wf-xfps-cfw-zeax 250 mg-200 unit -12.5 mg-1 mg Capsule 2 cap PO DAILY aspirin 325 mg Tablet 325 mg PO DAILY 15 Days Qty: 15 0RF glipizide 10 mg Tablet 10 mg PO DAILY 14 Days Qty: 14 0RF alendronate 70 mg Tablet 70 mg PO WEEKLY 14 Days Qty: 2 0RF Rx Instructions: takes on Mondays levothyroxine 50 mcg Tablet 50 mcg PO DAILY 15 Days Qty: 15 0RF Held amlodipine 5 mg Tablet 5 mg PO DAILY Hold Instructions: pending re-evaluation of BP in SNF setting Problem Reconciliation Problems Reviewed?: Yes Patient Discharge Instructions ACTIVITY: Continue current activity and Up with assistance DIET: continue same diet Patient Instructions: DI for Hip Fracture, DI for Hip Replacement, DI for Surgical Site Infection, Catheter-Associated Urinary Tract Infection Print Language: Lebanese Providers Primary Care Provider: Provider,Referral Admit Provider: Rajesh Major Attending Provider: Rajesh Major
--- NOTE | 2024-11-09 14:53 | P.PN_ITS ---
Subjective *Date: 11/09/24 *Time: 14:53 Interval history: Pt seen and examined while lying in bed comfortably. SHe states that pain is 7/10 with movement, but 5/10 while at rest. Managed with pain meds. Denies ACOSTA, CP, SOB, n/v, calf pain, paresthesias. Ortho Exam (Inpt) Vital signs and Labs for Last 24 Hours: Temp Pulse Resp BP Pulse Ox O2 Del Method O2 Flow Rate 98.2 F 75 18 115/65 98 Nasal Cannula 1 11/09/24 11:35 11/09/24 11:35 11/09/24 11:35 11/09/24 11:35 11/09/24 11:35 11/09/24 11:35 11/09/24 11:35 Laboratory Results - last 24 hr 11/08/24 15:57: POC Glucose 119 H 11/08/24 20:04: POC Glucose 164 H 11/09/24 05:33: WBC 5.4, RBC 3.79 L, Hgb 10.7 L, Hct 32.8 L, MCV 86.5, MCH 28.2, MCHC 32.6, RDW 14.1, Plt Count 161, MPV 9.8, Neut % (Auto) 71.4, Lymph % (Auto) 17.5, [place] % (Auto) 8.5, Eos % (Auto) 2.0, Baso % (Auto) 0.4, Neut # (Auto) 3.9, Lymph # (Auto) 1.0, [place] # (Auto) 0.5, Eos # (Auto) 0.1, Baso # (Auto) 0.0, Sodium 140, Potassium 4.4 D, Chloride 107, Carbon Dioxide 27, Anion Gap 10.4, BUN 9 D, Creatinine 0.80, Estimated Creat Clear 61, Estimated GFR 69, Est GFR ( Amer) 84, Glucose 137 H, Calcium 8.4, Magnesium 2.2 D, Total Bilirubin 0.6, AST 26, ALT 13, Alkaline Phosphatase 82, Total Protein 6.2 L, Albumin 3.1 L D, Globulin 3.1, Albumin/Globulin Ratio 1.0 L, Vitamin B12 425, Folate 7.46 11/09/24 05:45: POC Glucose 132 H 11/09/24 10:38: POC Glucose 202 H I & O for Labs for Last 24 Hours: Intake & Output 11/06/24 11/07/24 11/08/24 11/09/24 23:59 23:59 23:59 23:59 Intake Total 1600 / 1600 510 / 510 Output Total 100 / 2200 2100 / 2100 Balance 1500 / -600 -1590 / -1590 Weight 86.183 kg 83.915 kg 86.54 kg Additional findings:: Dressing C/D/I. Thighs and calves SNT to palpation. Neg Gunner. Grossly NVID with +2 DP, SILT at 1st DW/PA, equal b/l. + EHL/FHL/GS/TA b/l. Assessment and Plan *Assessment and plan (1) Closed left subtrochanteric femur fracture: Status: Acute Qualifiers: Encounter type: initial encounter Fracture alignment: displaced Qualified Code(s): S72.22XA - Displaced subtrochanteric fracture of left femur, initial encounter for closed fracture Category: Medical Code(s): S72.22XA - Displaced subtrochanteric fracture of left femur, initial encounter for closed fracture Plan S/p L long TFN POD#1 : Weightbearing as tolerated to LLE . Ambulate with a rolling walker or other devices as needed. DVT ppx: 325mg ASA QD, continue for total of 28 days. Ice as needed swelling and pain at incision site. Pain medication as needed. Hgb/Hct: 10.7/32.8 Appreciate medical input on non-orthopedic issues. Discharge planning per PT recommendations. F/u with local orthopod for post-op wound check in clinic at POD#10-14 for staple removal.
--- NOTE | 2024-11-09 15:19 | PC.NURSE ---
candi d/c at 1350
== END 2024-11-09 15:17 ==
LOC: ER 21:34 → 2ND 22:47
PROVIDERS: Orthopaedic Surgery; Student in an Organized Health Care Education/Training Program; Admitting Provider Internal Medicine Adolescent Medicine; Emergency Provider Emergency Medicine; Visit Provider Internal Medicine Adolescent Medicine
PROC: 0QH936Z Insertion of Intramedullary Internal Fixation Device into Left Femoral Shaft, Percutaneous Approach (ICD-10-PCS; CPT 27245; principal; 2024-11-08 11:00)
DX: S72.142A Displaced intertrochanteric fracture of left femur, initial encounter for closed fracture (principal); E03.9 Hypothyroidism, unspecified; E11.9 Type 2 diabetes mellitus without complications; I10 Essential (primary) hypertension; M85.80 Other specified disorders of bone density and structure, unspecified site; W10.8XXA Fall (on) (from) other stairs and steps, initial encounter; Y92.89 Other specified places as the place of occurrence of the external cause; H35.30 Unspecified macular degeneration; Z90.79 Acquired absence of other genital organ(s); Z96.641 Presence of right artificial hip joint; Z79.82 Long term (current) use of aspirin; Z79.3 Long term (current) use of hormonal contraceptives; Z79.891 Long term (current) use of opiate analgesic; E66.9 Obesity, unspecified; Z68.30 Body mass index [BMI] 30.0-30.9, adult
CPT/HCPCS: 36415; 73030; 73060; 73070; 73502; 73552; 76000; 80053; 82607; 82746; 82962; 83036; 83735; 84443; 85025; 85610; 86803; 87389; 97163; 97166; 99285; C1713; C1769; C1776; J0690; J1171; J1885; J1938; J2405; J2704; J3475; J7120

== ENCOUNTER 2024-11-23 09:40 | Outpatient (CLI) | payer MEDICARE, SELFPAY ==
--- NOTE | 2024-11-23 09:43 | XR_ITS ---
FINAL REPORT CLINICAL HISTORY: lt hip pain..broke femur in october..f/u surgery COMPARISON: 11/08/2024 FINDINGS: LEFT HIP 2 views of the left hip are obtained. There is an intramedullary amy and compression screw securing an intertrochanteric fracture. No other fracture is identified. IMPRESSION: Intramedullary amy and compression screw securing an intertrochanteric fracture of the left hip. Reviewed, Interpreted and Dictated by Walt Mcdonald MD Transcribed by Ml Bonilla Authenticated and [facility]
== END 2024-11-23 23:59 | disposition home or self-care (01) ==
LOC: RAD 09:41
PROVIDERS: Visit Provider Orthopaedic Surgery
DX: S72.22XA Displaced subtrochanteric fracture of left femur, initial encounter for closed fracture (principal)
CPT/HCPCS: 73502